=== PATIENT | female | born 1990 | race Caucasian/White ===

== ENCOUNTER 2017-06-28 19:09 | Emergency (ER) | payer MEDICAID, OTHER ==
[~2017-06-28] VITALS: Ht 165.1 cm; Wt 90.7 kg
--- NOTE | 2017-06-28 19:44 | Diagnostic Imaging Report ---
INDICATION: Left-sided chest pain started this morning with nonproductive cough COMPARISON STUDIES: None FINDINGS: Frontal and lateral views of the chest demonstrate the lungs to be clear. The heart, mediastinum, pulmonary vascularity and visualized bony thorax are normal. IMPRESSION: Normal chest. Dictated by: Dictated on workstation # [id number]
--- NOTE | 2017-06-28 19:59 | ED General ---
General Chief Complaint: Chest Wall/Rib Pain Stated Complaint: CHEST/BACK PAIN Nursing Triage Note: left shoulder/chest wall pain worse with cough/deep breathing. no injury Nursing Sepsis Screen: No Definite Risk Source of Information: Patient Exam Limitations: No Limitations History of Present Illness Date Seen by Provider: Jun 28, 2017 Time Seen by Provider: 19:20 Initial Comments Here with report of pain to the area of the left shoulder that radiates around the chest. This way this morning. It is worse with cough and deep breathing. Worse with movement of the left shoulder. Denies specific injury. Timing/Duration: 12 Hours Severity: Moderate Modifying Factors: worse with Movement Associated Systoms: Cough, No Fever/Chills, No Nausea/Vomiting, No Shortness of Air Allergies and Home Medications Allergies Coded Allergies: No Known Drug Allergies (Unverified , 06/28/17) Home Medications No Active Prescriptions or Reported Meds Patient Home Medication List Home Medication List Reviewed: Yes Constitutional: see HPI, No chills, No fever EENTM: no symptoms reported Respiratory: cough, No short of breath Cardiovascular: no symptoms reported Genitourinary: no symptoms reported Musculoskeletal: see HPI, muscle pain, muscle stiffness Skin: no symptoms reported Psychiatric/Neurological: No Symptoms Reported Past Atosctq-Lplzck-Lybvno Hx Patient Social History Alcohol Use: Denies Use Recreational Drug Use: No Smoking Status: Never a Smoker 2nd Hand Smoke Exposure: No Recent Foreign Travel: No Contact w/Someone Who Travel: No Recent Infectious Disease Expo: No Recent Hopitalizations: No Seasonal Allergies Seasonal Allergies: No Surgeries History of Surgeries: Yes Surgeries: Section Respiratory History of Respiratory Disorde: No Cardiovascular History of Cardiac Disorders: No Neurological History of Neurological Disord: No Reproductive System : No Last Menstrual Period: Jun 28, 2017 Genitourinary History of Genitourinary Disor: No Gastrointestinal History of Gastrointestinal Di: No Musculoskeletal History of Musculoskeletal Dis: No Endocrine History of Endocrine Disorders: No HEENT History of HEENT Disorders: No Cancer History of Cancer: No Psychosocial History of Psychiatric Problem: No Integumentary History of Skin or Integumenta: No Blood Transfusions History of Blood Disorders: No Reviewed Nursing Assessment Reviewed/Agree w Nursing PMH: Yes Physical Exam Vital Signs Vital Signs - First Documented 06/28/17 19:15 Temp 98.4 Pulse 82 Resp 16 B/P (MAP) 140/97 (111) Pulse Ox 99 O2 Delivery Room Air Capillary Refill : Less Than 3 Seconds General Appearance: No Apparent Distress, WD/WN HEENT: PERRL/EOMI, Pharynx Normal Neck: Non Tender, Supple Respiratory: Lungs Clear, Normal Breath Sounds Cardiovascular: Regular Rate, Rhythm, No Murmur Gastrointestinal: Non Tender, Soft Extremity: Normal Range of Motion, Other (tender in the area of the rhomboids. Tender with movement.) Neurologic/Psychiatric: Alert, Oriented x3 Skin: Normal Color, Warm/Dry Progress/Results/Core Measures Suspected Sepsis Recent Fever Within 48 Hours: No Infection Criteria Present: None New/Unexplained Altered Menta: No Sepsis Screen: No Definite Risk Sepsis Diagnosis: SIRS Temperature:98.4 Pulse: 82 Respiratory Rate: 16 Blood Pressure 140 /97 Mean: 111 Results/Orders My Orders Orders - BAILEY GARCIA MD Chest Pa/Lat (2 View) (06/28/17 19:27) Vital Signs/I&O Vital Sign - Last 12Hours 06/28/17 19:15 Temp 98.4 Pulse 82 Resp 16 B/P (MAP) 140/97 (111) Pulse Ox 99 O2 Delivery Room Air Capillary Refill : Less Than 3 Seconds Blood Pressure Mean: 111 Progress Note : Progress Note Seen and evaluated. Two-view chest x-ray ordered. No acute findings. Discharged home with return precautions. Patient verbalize understanding instructions and agreement with plan. Diagnostic Imaging Diagonstic Imaging: Xray Plain Films/CT/US/NM/MRI: chest Comments VIA [facility], [facility] [place], [place] NAME: JULIO CNAI [facility] REC#: [id number] PT STATUS: REG ER : 1990 PHYSICIAN: BAILEY GARCIA MD ADMIT DATE: 06/28/17/ER Draft Date of Exam:06/28/17 CHEST PA/LAT (2 VIEW) INDICATION: Left-sided chest pain started this morning with nonproductive cough COMPARISON STUDIES: None FINDINGS: Frontal and lateral views of the chest demonstrate the lungs to be clear. The heart, mediastinum, pulmonary vascularity and visualized bony thorax are normal. IMPRESSION: Normal chest. Dictated on workstation # [id number] Dict: 06/28/171940 Trans: 06/28/171942 [facility] [id number] Interpreted by: CARYN ROY MD Electronically signed by: Departure Impression Impression: Primary Impression: Rhomboid muscle strain Qualified Codes: S29.012A - Strain of muscle and tendon of back wall of thorax , initial encounter Disposition: HOME, SELF-CARE Condition: Improved Departure-Patient Inst. Decision time for Depature: 20:01 Referrals: NO,LOCAL PHYSICIAN (PCP/Family) Primary Care Physician Patient Instructions: Muscle Strain (DC) Add. Discharge Instructions: All discharge instructions reviewed with patient and/or family. Voiced understanding. Take medications as directed. You may take ibuprofen 800 mg every 8 hours as needed for pain. You may take Tylenol 1000 mg every 8 hours as needed for pain. You may use icy hot with lidocaine patch for similar I don't that you may purchase over the counter to the area of concern per package directions. Return for worse pain, fever, vomiting, weakness, breathing problems or other concerns as needed. Scripts Cyclobenzaprine HCl (Cyclobenzaprine HCl) 10 Mg Tablet 10 MG PO Q8H Y for SPASMS, #15 TAB 0 Refills Prov: BAILEY GARCIA MD 06/28/17 BAILEY GARCIA MD Jun 28, 2017 19:59
[2017-06-28] MEDS ORDERED: CYCL10TA9 PO (20:03)
[2017-06-28 20:10] VITALS: BP 140/97
== END 2017-06-28 20:07 | disposition home or self-care (01) ==
LOC: EDUNIT# 19:09 → ER 19:11
DX: S29.012A Strain of muscle and tendon of back wall of thorax, initial encounter (principal); Z87.59 Personal history of other complications of pregnancy, childbirth and the puerperium; X58.XXXA Exposure to other specified factors, initial encounter
CPT/HCPCS: 71046

== ENCOUNTER 2017-09-06 10:30 | Emergency (ER) | payer MEDICAID ==
[~2017-09-06] VITALS: Ht 162.6 cm; Wt 81.6 kg
[~2017-09-06 10:30] MED LIST: CYCL10TA9 PO
[2017-09-06] MEDS ORDERED: KETOROLAC 30 MG/ML VIAL IVP STA (11:52)
[2017-09-06] MEDS ORDERED: NS IV 1000 ML 1,000 ML IV ONE (11:52)
--- NOTE | 2017-09-06 11:52 | ED General ---
General Chief Complaint: Lower Extremity Stated Complaint: LEFT LEG PAIN Nursing Triage Note: pt reports pain to left lower extremity from groin to knee intermittently x 1 month. reports pain has been constant since wednesday. mild swelling to lower extremity noted. pt reports warmth and tenderness ot the touch, but denies redness. pt describes intermittent, pulsating, sharp throbbing that worsens when laying or sitting. denies recent long distant travel, flights, or surgeries. Nursing Sepsis Screen: No Definite Risk Source of Information: Patient Exam Limitations: No Limitations History of Present Illness Date Seen by Provider: September 06, 2017 Time Seen by Provider: 11:30 Initial Comments 27-year-old female patient presents to the emergency Department with reports of left anterior thigh pain radiating to the knee for one month. Also complains of distal anterior left lower extremity pain. Does report warmth and tenderness to the touch including light palpation. Pain is worse with lying or sitting. Patient denies any recent known injury. Denies any recent travel, flanks, or surgeries. No family history for DVT. Patient does report a history of an Escherichia coli infection of the left lower extremity approximately 10 years ago which required surgical debridement. Reports infection began after swimming in [facility]. Denies low back pain, bowel incontinence, or bladder incontinence. Timing/Duration: Intermittent, Other (1 month) Modifying Factors: worse with Movement, worse with Other (worse with palpation , lying and sitting.) Allergies and Home Medications Allergies Coded Allergies: No Known Drug Allergies (Unverified , 06/28/17) Home Medications Diclofenac Sodium 75 Mg Tablet.dr, 75 MG PO BID PRN for pain Prescribed by: AURORA PINZON on 09/06/17 1342 Sulfamethoxazole/Trimethoprim 1 Each Tablet, 1 EACH PO BID Prescribed by: AURORA PINZON on 09/06/17 1342 Patient Home Medication List Home Medication List Reviewed: Yes Review of Systems Constitutional: chills; No diaphoresis, No fever, No malaise Respiratory: no symptoms reported Cardiovascular: no symptoms reported Gastrointestinal: no symptoms reported Genitourinary: no symptoms reported Musculoskeletal: see HPI; No back pain; joint pain, joint swelling (LLE swelling.); No neck pain Skin: see HPI; No change in color, No lesions, No lumps, No rash Psychiatric/Neurological: Denies Numbness, Denies Paresthesia, Denies Tingling , Denies Weakness All Other Systems Reviewed Negative Unless Noted: Yes (Negative excepted noted.) Past Ulypzpp-Iaztgw-Agwyau Hx Patient Social History Alcohol Use: Denies Use Recreational Drug Use: No Smoking Status: Never a Smoker 2nd Hand Smoke Exposure: No Recent Foreign Travel: No Contact w/Someone Who Travel: No Recent Infectious Disease Expo: No Recent Hopitalizations: No Physical Abuse: No Sexual Abuse: No Mistreated: No Fear: No Immunizations Up To Date Tetanus Booster (TDap): Less than 5yrs Seasonal Allergies Seasonal Allergies: No Past Medical History Surgeries: Yes (surgical debridement of the LLE for infection) Section Respiratory: No Cardiac: No Neurological: No : No Genitourinary: No Gastrointestinal: No Musculoskeletal: No Endocrine: No HEENT: No Cancer: No Psychosocial: No Nursing Suicide Risk Score: 1 Integumentary: Yes (E. coli infection of the LLE requiring surgical debridement (approx. 2007 or 2009)) Blood Disorders: No Family Medical History Reviewed and Corrections made No Pertinent Family Hx Physical Exam Vital Signs Vital Signs - First Documented 09/06/17 11:15 Pulse 59 Resp 18 B/P (MAP) 132/93 (106) Pulse Ox 99 O2 Delivery Room Air Capillary Refill : Less Than 3 Seconds General Appearance: No Apparent Distress, WD/WN HEENT: PERRL/EOMI, Pharynx Normal Neck: Normal Inspection, Supple Respiratory: Lungs Clear, Normal Breath Sounds, No Accessory Muscle Use, No Respiratory Distress Cardiovascular: Regular Rate, Rhythm, No Murmur, Normal Peripheral Pulses Gastrointestinal: Normal Bowel Sounds, No Organomegaly, Non Tender, Soft Back: Normal Inspection, No Vertebral Tenderness; No Decreased Range of Motion Extremity: Normal Capillary Refill, Normal Range of Motion, No Calf Tenderness , Swelling (mild LLE), Other (left anterior thigh and lateral thigh TTP without rash, deformity, lesions, erythema, or ecchymosis. mild warmth noted. Left anterior distal leg TTP without rash, deformity, lesions, erythema, or ecchymosis. multiple scars noted on the distal LLE consistent with PSH. ) Neurologic/Psychiatric: Alert, Oriented x3, Normal Mood/Affect Skin: Normal Color, Warm/Dry, Other (left anterior thigh and lateral thigh TTP without rash, deformity, lesions, erythema, or ecchymosis. mild warmth noted. Left anterior distal leg TTP without rash, deformity, lesions, erythema, or ecchymosis. multiple scars noted on the distal LLE consistent with PSH. ) Progress/Results/Core Measures Suspected Sepsis Recent Fever Within 48 Hours: No Infection Criteria Present: None New/Unexplained Altered Menta: No Sepsis Screen: No Definite Risk SIRS Temperature: Pulse: 59 Respiratory Rate: 18 Laboratory Tests 09/06/17 12:20: White Blood Count 6.3 Blood Pressure 132 /93 Mean: 106 Laboratory Tests 09/06/17 12:20: Creatinine 0.72, Platelet Count 227, Total Bilirubin 0.5 Results/Orders Lab Results Laboratory Tests Test 09/06/17 12:20 Range/Units White Blood Count 6.3 4.3-11.0 10^3/uL Red Blood Count 4.49 4.35-5.85 10^6/uL Hemoglobin 11.6 11.5-16.0 G/DL Hematocrit 36 35-52 % Mean Corpuscular Volume 80 80-99 FL Mean Corpuscular Hemoglobin 26 25-34 PG Mean Corpuscular Hemoglobin Concent 32 32-36 G/DL Red Cell Distribution Width 14.8 H 10.0-14.5 % Platelet Count 227 130-400 10^3/uL Mean Platelet Volume 11.0 H 7.4-10.4 FL Neutrophils (%) (Auto) 68 42-75 % Lymphocytes (%) (Auto) 25 12-44 % Monocytes (%) (Auto) 6 0-12 % Eosinophils (%) (Auto) 1 0-10 % Basophils (%) (Auto) 0 0-10 % Neutrophils # (Auto) 4.3 1.8-7.8 X 10^3 Lymphocytes # (Auto) 1.6 1.0-4.0 X 10^3 Monocytes # (Auto) 0.4 0.0-1.0 X 10^3 Eosinophils # (Auto) 0.1 0.0-0.3 10^3/uL Basophils # (Auto) 0.0 0.0-0.1 10^3/uL Sodium Level 137 135-145 MMOL/L Potassium Level 3.9 3.6-5.0 MMOL/L Chloride Level 104 98-107 MMOL/L Carbon Dioxide Level 24 21-32 MMOL/L Anion Gap 9 5-14 MMOL/L Blood Urea Nitrogen 19 H 7-18 MG/DL Creatinine 0.72 0.60-1.30 MG/DL Estimat Glomerular Filtration Rate > 60 BUN/Creatinine Ratio 26 Glucose Level 89 70-105 MG/DL Calcium Level 9.0 8.5-10.1 MG/DL Total Bilirubin 0.5 0.1-1.0 MG/DL Aspartate Amino Transf (AST/SGOT) 15 5-34 U/L Alanine Aminotransferase (ALT/SGPT) 6 0-55 U/L Alkaline Phosphatase 83 40-136 U/L C-Reactive Protein High Sensitivity 1.13 H 0.00-0.50 MG/DL Total Protein 7.3 6.4-8.2 GM/DL Albumin 4.0 3.2-4.5 GM/DL My Orders Orders - AURORA PINZON Cbc With Automated Diff (09/06/17 11:50) Comprehensive Metabolic Panel (09/06/17 11:50) Hs C Reactive Protein (09/06/17 11:50) Saline Lock/Iv-Start (09/06/17 11:50) Us Venous Lower Ext Lt (09/06/17 11:50) Ns Iv 1000 Ml (Sodium Chloride 0.9%) (09/06/17 11:52) Ketorolac Injection (Toradol Injection) (09/06/17 11:52) Medications Given in ED Current Medications Medications Dose Ordered Sig/Claudia Route Start Time Stop Time Status Last Admin Dose Admin Sodium Chloride 1,000 ml @ 0 mls/hr Q0M ONCE IV 09/06/17 11:52 09/06/17 11:53 DC 09/06/17 12:56 0 MLS/HR Vital Signs/I&O 09/06/17 09/06/17 11:15 14:43 Pulse 59 59 Resp 18 18 B/P (MAP) 132/93 (106) 127/77 Pulse Ox 99 99 O2 Delivery Room Air Room Air Capillary Refill : Less Than 3 Seconds Blood Pressure Mean: 106 Diagnostic Imaging Diagonstic Imaging: Ultrasound Plain Films/CT/US/NM/MRI: leg Comments US VENOUS LOWER EXT LT PROCEDURE: US left lower extremity venous. TECHNIQUE: Multiple real-time grayscale images were obtained over the left lower extremity in various projections. Additional duplex Doppler and color Doppler images were also obtained. INDICATION: Left leg pain. There is no evidence of a left lower extremity DVT. Left lower extremity deep venous system shows normal compressibility with normal response to augmentation and Valsalva. No fluid collection or mass is seen. IMPRESSION: No evidence of left lower extremity DVT. Dictated on workstation # [id number] Reviewed: Reviewed by Me (radiology report reviewed by me) Departure Communication (Admissions) Laboratory and diagnostic findings discussed with the patient. Patient reports improvement with Toradol. Patient given a prescription for oral antibiotics for the increased warmth of the left thigh as this may be related to early cellulitis. Plan for discharge to home. Impression Primary Impression: Lower extremity pain, left Disposition: HOME, SELF-CARE Condition: Improved Departure-Patient Inst. Decision time for Depature: 13:39 Referrals: NO,LOCAL PHYSICIAN (PCP/Family) Primary Care Physician Patient Instructions: Acute Pain, Adult (DC), Cellulitis (Skin Infection), Adult (DC) Add. Discharge Instructions: All discharge instructions reviewed with patient and/or family. Voiced understanding. Medications as instructed. Tylenol extra strength over-the- counter as directed for pain. Elevate the left lower Lady on pillows. Follow-up with your primary care provider for recheck as an outpatient this week. Return to the emergency department for worsened pain, redness, fever, open wound, shortness of air, chest pain, discoloration, or any other concerns. Scripts Diclofenac Sodium (Diclofenac Sodium) 75 Mg Tablet. 75 MG PO BID PRN for pain, #14 TAB 0 Refills Prov: AURORA PINZON 09/06/17 Sulfamethoxazole/Trimethoprim (Bactrim Ds Tablet) 1 Each Tablet 1 EACH PO BID, #14 TAB 0 Refills Prov: AURORA PINZON 09/06/17 Work/School Note: Local Medical Staff Listing, Work Release Form Date Seen in the Emergency Department: September 06, 2017 Return to Work: September 08, 2017 AURORA PINZON September 06, 2017 11:52
[2017-09-06 12:31] LABS: BASOPHILS % (AUTO) 0 % (0-10); EOSINOPHILS # (AUTO) 0.1 10^3/uL (0.0-0.3); EOSINOPHILS % (AUTO) 1 % (0-10); HEMATOCRIT 36 % (35-52); HEMOGLOBIN 11.6 G/DL (11.5-16.0); LYMPHOCYTES # (AUTO) 1.6 X 10^3 (1.0-4.0); LYMPHOCYTES % (AUTO) 25 % (12-44); MEAN CORPUSCULAR HEMOGLOBIN 26 PG (25-34); MEAN CORPUSCULAR HGB CONC 32 G/DL (32-36); MEAN CORPUSCULAR VOLUME 80 FL (80-99); MONOCYTES # (AUTO) 0.4 X 10^3 (0.0-1.0); MONOCYTES % (AUTO) 6 % (0-12); NEUTROPHILS # (AUTO) 4.3 X 10^3 (1.8-7.8); NEUTROPHILS % (AUTO) 68 % (42-75); PLATELET COUNT 227 10^3/uL (130-400); RED BLOOD COUNT 4.49 10^6/uL (4.35-5.85); RED CELL DISTRIBUTION WIDTH 14.8 % (10.0-14.5); WHITE BLOOD COUNT 6.3 10^3/uL (4.3-11.0)
[2017-09-06 12:48] LABS: ALANINE AMINOTRANSFERASE 6 U/L (0-55); ALKALINE PHOSPHATASE 83 U/L (40-136); BILIRUBIN,TOTAL 0.5 MG/DL (0.1-1.0); BUN/CREATININE RATIO 26; CARBON DIOXIDE 24 MMOL/L (21-32); CHLORIDE 104 MMOL/L (98-107); CREATININE SERUM 0.72 MG/DL (0.60-1.30); GFR ESTIMATED > 60; GLUCOSE 89 MG/DL (70-105); POTASSIUM 3.9 MMOL/L (3.6-5.0); SODIUM 137 MMOL/L (135-145); TOTAL PROTEIN 7.3 GM/DL (6.4-8.2)
--- NOTE | 2017-09-06 13:32 | Diagnostic Imaging Report ---
PROCEDURE: US left lower extremity venous. TECHNIQUE: Multiple real-time grayscale images were obtained over the left lower extremity in various projections. Additional duplex Doppler and color Doppler images were also obtained. INDICATION: Left leg pain. There is no evidence of a left lower extremity DVT. Left lower extremity deep venous system shows normal compressibility with normal response to augmentation and Valsalva. No fluid collection or mass is seen. IMPRESSION: No evidence of left lower extremity DVT. Dictated by: Dictated on workstation # [id number]
[2017-09-06] MEDS ORDERED: SULF1TAB35 PO (13:42)
[2017-09-06] MEDS ORDERED: DICL75TA2 PO (13:42)
[2017-09-06 14:43] VITALS: BP 127/77
== END 2017-09-06 14:43 | disposition home or self-care (01) ==
LOC: EDUNIT# 10:30 → ER 10:33
DX: M79.652 Pain in left thigh (principal); Z86.19 Personal history of other infectious and parasitic diseases; Z87.59 Personal history of other complications of pregnancy, childbirth and the puerperium
CPT/HCPCS: 36415; 80053; 85025; 86141; 96361; 96374

== ENCOUNTER 2018-11-23 19:06 | Emergency (ER) | payer MEDICAID ==
[~2018-11-23] VITALS: Ht 167.6 cm; Wt 59.0 kg
[~2018-11-23 19:06] MED LIST changes: +DICL75TA2 PO; +SULF1TAB35 PO
[2018-11-23 19:52] LABS: BASOPHILS % (AUTO) 0 % (0-10); EOSINOPHILS % (AUTO) 0 % (0-10); HEMATOCRIT 35 % (35-52); HEMOGLOBIN 11.3 G/DL (11.5-16.0); LYMPHOCYTES # (AUTO) 1.4 X 10^3 (1.0-4.0); LYMPHOCYTES % (AUTO) 11 % (12-44); MEAN CORPUSCULAR HEMOGLOBIN 26 PG (25-34); MEAN CORPUSCULAR HGB CONC 32 G/DL (32-36); MEAN CORPUSCULAR VOLUME 80 FL (80-99); MEAN PLATELET VOLUME 10.2 FL (7.4-10.4); MONOCYTES # (AUTO) 0.8 X 10^3 (0.0-1.0); MONOCYTES % (AUTO) 7 % (0-12); NEUTROPHILS # (AUTO) 10.2 X 10^3 (1.8-7.8); NEUTROPHILS % (AUTO) 82 % (42-75); PLATELET COUNT 270 10^3/uL (130-400); RED CELL DISTRIBUTION WIDTH 13.4 % (10.0-14.5); WHITE BLOOD COUNT 12.5 10^3/uL (4.3-11.0)
[2018-11-23 19:59] LABS: PROTHROMBIN TIME PATIENT 13.1 SEC (12.2-14.7)
[2018-11-23 20:06] LABS: ALBUMIN 4.1 GM/DL (3.2-4.5); BILIRUBIN,TOTAL 0.4 MG/DL (0.1-1.0); CALCIUM 9.7 MG/DL (8.5-10.1); CREATININE SERUM 1.14 MG/DL (0.60-1.30); POTASSIUM 3.6 MMOL/L (3.6-5.0); TOTAL PROTEIN 8.6 GM/DL (6.4-8.2)
[2018-11-23 20:35] LABS: AMPHETAMINE SCREEN, URINE NEGATIVE (NEGATIVE); BARBITURATE SCREEN URINE NEGATIVE (NEGATIVE); BENZODIAZEPINES SCREEN URINE NEGATIVE (NEGATIVE); CANNABINOID SCREEN, URINE NEGATIVE (NEGATIVE); COCAINE SCREEN URINE NEGATIVE (NEGATIVE); METHADONE STAT NEGATIVE (NEGATIVE); METHAMPHETAMINE SCREEN URINE S NEGATIVE (NEGATIVE); OPIATE SCREEN URINE POSITIVE (NEGATIVE); OXYCODONE STAT NEGATIVE (NEGATIVE); PROPOXYPHENE STAT NEGATIVE (NEGATIVE); TRICYCLIC ANTIDEPRESSANTS SCRE NEGATIVE (NEGATIVE)
[2018-11-23] MEDS ORDERED: SULF1TAB35 PO (21:09)
--- NOTE | 2018-11-23 21:10 | ED Integumentary General ---
General Chief Complaint: Skin/Wound Problems Stated Complaint: R ARM SWELLING,FEVER Source: patient Exam Limitations: no limitations History of Present Illness Date Seen by Provider: Nov 23, 2018 Time Seen by Provider: 19:34 Initial Comments 28 year old female who presents to the emergency room with complains of right arm abscess and rash on her back. She reports she has had these for around a week. She reports low grade fevers during this time. Timing/Duration: week Associated Symptoms: fever, rash Allergies and Home Medications Allergies Coded Allergies: No Known Drug Allergies (Unverified , 06/28/17) Home Medications Diclofenac Sodium 75 Mg Tablet.dr, 75 MG PO BID PRN for pain Prescribed by: AURORA PINZON on 09/06/17 1342 Sulfamethoxazole/Trimethoprim 1 Each Tablet, 1 EACH PO BID Prescribed by: AURORA PINZON on 09/06/17 1342 Sulfamethoxazole/Trimethoprim 1 Each Tablet, 1 EACH PO BID Prescribed by: BRYANT HUYNH on 11/23/182108 Patient Home Medication List Home Medication List Reviewed: Yes Review of Systems Review of Systems Constitutional: see HPI, chills, fever Skin: see HPI, other (redness and swelling to left forearm and rash on back. ) Past Lttcwro-Tyibqo-Bflspx Hx Past Med/Social Hx: Reviewed Nursing Past Med/Soc Hx Patient Social History Alcohol Use: Denies Use Recreational Drug Use: Yes Drug of Choice: pain pills, meth hx Smoking Status: Never a Smoker 2nd Hand Smoke Exposure: No Recent Foreign Travel: No Contact w/Someone Who Travel: No Recent Hopitalizations: No Immunizations Up To Date Tetanus Booster (TDap): Unknown PED Vaccines UTD: Yes Seasonal Allergies Seasonal Allergies: No Past Medical History Surgeries: Yes Section Respiratory: No Cardiac: No Neurological: No Genitourinary: No Gastrointestinal: No Musculoskeletal: No Endocrine: No HEENT: No Cancer: No Psychosocial: No Integumentary: No Blood Disorders: No Family Medical History Reviewed Nursing Family Hx No Pertinent Family Hx Physical Exam Vital Signs Vital Signs - First Documented 11/23/18 19:27 Temp 100.4 Pulse 122 Resp 22 B/P (MAP) 166/107 (126) Pulse Ox 97 O2 Delivery Room Air Capillary Refill : General Appearance: WD/WN, no apparent distress Cardiovascular: normal peripheral pulses, regular rate, rhythm, no edema, no gallop, no JVD, no murmur Respiratory: chest non-tender, lungs clear, normal breath sounds, no respiratory distress, no accessory muscle use Extremities: normal capillary refill Neurologic/Psychiatric: alert, normal mood/affect, oriented x 3 Skin: normal color, warm/dry, other (erythema and mild swelling to right forearm. No flucuation noted. Cellulitis to back between shoulder blade. ) Progress/Results/Core Measures Results/Orders Lab Results Laboratory Tests Test 11/23/18 19:39 11/23/18 19:42 Range/Units White Blood Count 12.5 H 4.3-11.0 10^3/uL Red Blood Count 4.36 4.35-5.85 10^6/uL Hemoglobin 11.3 L 11.5-16.0 G/DL Hematocrit 35 35-52 % Mean Corpuscular Volume 80 80-99 FL Mean Corpuscular Hemoglobin 26 25-34 PG Mean Corpuscular Hemoglobin Concent 32 32-36 G/DL Red Cell Distribution Width 13.4 10.0-14.5 % Platelet Count 270 130-400 10^3/uL Mean Platelet Volume 10.2 7.4-10.4 FL Neutrophils (%) (Auto) 82 H 42-75 % Lymphocytes (%) (Auto) 11 L 12-44 % Monocytes (%) (Auto) 7 0-12 % Eosinophils (%) (Auto) 0 0-10 % Basophils (%) (Auto) 0 0-10 % Neutrophils # (Auto) 10.2 H 1.8-7.8 X 10^3 Lymphocytes # (Auto) 1.4 1.0-4.0 X 10^3 Monocytes # (Auto) 0.8 0.0-1.0 X 10^3 Eosinophils # (Auto) 0.0 0.0-0.3 10^3/uL Basophils # (Auto) 0.0 0.0-0.1 10^3/uL Prothrombin Time 13.1 12.2-14.7 SEC INR Comment 1.0 0.8-1.4 Activated Partial Thromboplast Time 36 H 24-35 SEC Sodium Level 135 135-145 MMOL/L Potassium Level 3.6 3.6-5.0 MMOL/L Chloride Level 99 98-107 MMOL/L Carbon Dioxide Level 21 21-32 MMOL/L Anion Gap 15 H 5-14 MMOL/L Blood Urea Nitrogen 17 7-18 MG/DL Creatinine 1.14 0.60-1.30 MG/DL Estimat Glomerular Filtration Rate 56 BUN/Creatinine Ratio 15 Glucose Level 108 H 70-105 MG/DL Lactic Acid Level 1.19 0.50-2.00 MMOL/L Calcium Level 9.7 8.5-10.1 MG/DL Corrected Calcium 9.6 8.5-10.1 MG/DL Total Bilirubin 0.4 0.1-1.0 MG/DL Aspartate Amino Transf (AST/SGOT) 14 5-34 U/L Alanine Aminotransferase (ALT/SGPT) 13 0-55 U/L Alkaline Phosphatase 81 40-136 U/L Total Protein 8.6 H 6.4-8.2 GM/DL Albumin 4.1 3.2-4.5 GM/DL Urine Color YELLOW Urine Clarity CLOUDY H Urine pH 5 5-9 Urine Specific Scheller 1.030 H 1.016-1.022 Urine Protein 2+ H NEGATIVE Urine Glucose (UA) NEGATIVE NEGATIVE Urine Ketones NEGATIVE NEGATIVE Urine Nitrite NEGATIVE NEGATIVE Urine Bilirubin NEGATIVE NEGATIVE Urine Urobilinogen 4 H NORMAL MG/DL Urine Leukocyte Esterase NEGATIVE NEGATIVE Urine RBC (Auto) 1+ H NEGATIVE Urine RBC NONE /HPF Urine WBC 0-2 /HPF Urine Squamous Epithelial Cells 0-2 /HPF Urine Crystals PRESENT H /LPF Urine Amorphous Sediment MOD DARRIAN URATES H /LPF Urine Bacteria LARGE H /HPF Urine Casts PRESENT /LPF Urine Hyaline Casts 0-2 H /LPF Urine Mucus NEGATIVE /LPF Urine Culture Indicated YES Urine Opiates Screen POSITIVE H NEGATIVE Urine Oxycodone Screen NEGATIVE NEGATIVE Urine Methadone Screen NEGATIVE NEGATIVE Urine Propoxyphene Screen NEGATIVE NEGATIVE Urine Barbiturates Screen NEGATIVE NEGATIVE Ur Tricyclic Antidepressants Screen NEGATIVE NEGATIVE Urine Phencyclidine Screen NEGATIVE NEGATIVE Urine Amphetamines Screen NEGATIVE NEGATIVE Urine Methamphetamines Screen NEGATIVE NEGATIVE Urine Benzodiazepines Screen NEGATIVE NEGATIVE Urine Cocaine Screen NEGATIVE NEGATIVE Urine Cannabinoids Screen NEGATIVE NEGATIVE Micro Results Microbiology 11/23/18 Blood Culture - Preliminary, Resulted No growth 11/23/18 Blood Culture - Preliminary, Resulted No growth 11/23/18 Urine Culture - Final, Complete 3 or more isolates My Orders Orders - BRYANT HUYNH Cbc With Automated Diff (11/23/18 19:34) Comprehensive Metabolic Panel (11/23/18 19:34) Blood Culture (11/23/18 19:34) Protime With Inr (11/23/18 19:34) Partial Thromboplastin Time (11/23/18 19:34) Ed Iv/Invasive Line Start (11/23/18 19:34) Lactic Acid Analyzer (11/23/18 19:34) Drug Screen Stat (Urine) (11/23/18 20:20) Sulfamethoxazole/Trimet Ds Tab (Bactrim (11/23/18 21:15) Ua Culture If Indicated (11/23/18 21:06) Urine Culture (11/23/18 19:42) Vital Signs/I&O 11/23/18 11/23/18 11/23/18 19:27 20:00 21:36 Temp 100.4 100.4 100.8 Pulse 122 122 95 Resp 22 22 18 B/P (MAP) 166/107 (126) 166/107 137/90 (106) Pulse Ox 97 97 97 O2 Delivery Room Air Room Air Room Air Departure Impression Primary Impression: Cellulitis Disposition: 01 HOME, SELF-CARE Condition: Stable/Unchanged Departure-Patient Inst. Decision time for Depature: 21:08 Referrals: NO,LOCAL PHYSICIAN (PCP/Family) Primary Care Physician Patient Instructions: Cellulitis (Skin Infection), Adult (DC), LOCAL PHYSICIAN LIST Add. Discharge Instructions: Take medications as directed. Follow-up with a primary care provider within 1 week for recheck. Call tomorrow morning to schedule an appointment time. Return back to the emergency room for worsening symptoms or concerns as needed. All discharge instructions reviewed with patient and/or family. Voiced understanding. Scripts Sulfamethoxazole/Trimethoprim (Bactrim Ds Tablet) 1 Each Tablet 1 EACH PO BID for 10 Days, #20 TAB Prov: BRYANT HUYNH 11/23/18 BRYANT HUYNH Nov 23, 2018 21:09
[2018-11-23] MEDS ORDERED: TRIM/SULFAMETH 160/800 (SEPTRA DS) TAB PO ONE (21:15)
[2018-11-23 21:36] VITALS: BP 137/90
[2018-11-24 03:29] LABS: BILIRUBIN,URINE NEGATIVE (NEGATIVE); CLARITY,URINE CLOUDY; COLOR,URINE YELLOW; GLUCOSE, URINE (UA) NEGATIVE (NEGATIVE); KETONES,URINE NEGATIVE (NEGATIVE); LEUKOCYTE ESTERASE ,URINE NEGATIVE (NEGATIVE); NITRITE,URINE NEGATIVE (NEGATIVE); PH,URINE 5 (5-9); PROTEIN,URINE 2+ (NEGATIVE); UROBILINOGEN,URINE 4 MG/DL (NORMAL)
[2018-11-24 03:33] LABS: AMORPHOUS SEDIMENT,UR MOD AMOR URATES /LPF; BACTERIA,URINE LARGE /HPF; HYALINE CASTS, URINE 0-2 /LPF; SQUAMOUS EPITHELIAL CELL,UR 0-2 /HPF; WBC,URINE 0-2 /HPF
== END 2018-11-23 21:36 | disposition home or self-care (01) ==
LOC: EDUNIT# 19:06 → ER 19:07
DX: L03.113 Cellulitis of right upper limb (principal)
CPT/HCPCS: 36415; 80053; 80306; 81000; 83605; 85025; 85610; 85730; 87040; 87088

== ENCOUNTER 2020-02-25 11:42 | Emergency (ER) | payer MEDICAID, OTHER ==
[~2020-02-25] VITALS: Ht 162 cm; Wt 104.3 kg
[2020-02-25] MEDS ORDERED: NS IV 1000 ML 1,000 ML IV SCH (11:50)
[2020-02-25 12:01] LABS: BASOPHILS % (AUTO) 0 % (0-10); EOSINOPHILS # (AUTO) 0.1 10^3/uL (0.0-0.3); EOSINOPHILS % (AUTO) 1 % (0-10); HEMATOCRIT 36 % (35-52); HEMOGLOBIN 10.9 g/dL (11.5-16.0); LYMPHOCYTES % (AUTO) 21 % (12-44); MEAN CORPUSCULAR HEMOGLOBIN 24 pg (25-34); MEAN CORPUSCULAR HGB CONC 30 g/dL (32-36); MEAN CORPUSCULAR VOLUME 78 fL (80-99); MEAN PLATELET VOLUME 10.9 fL (9.0-12.2); MONOCYTES # (AUTO) 0.7 10^3/uL (0.0-1.0); MONOCYTES % (AUTO) 8 % (0-12); NEUTROPHILS # (AUTO) 6.6 10^3/uL (1.8-7.8); NEUTROPHILS % (AUTO) 70 % (42-75); PLATELET COUNT 280 10^3/uL (130-400); WHITE BLOOD COUNT 9.5 10^3/uL (4.3-11.0)
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
[2020-02-25 12:10] LABS: ALBUMIN 3.9 GM/DL (3.2-4.5); CHLORIDE 104 MMOL/L (98-107); POTASSIUM 3.7 MMOL/L (3.6-5.0); SODIUM 138 MMOL/L (135-145)
[2020-02-25 12:11] LABS: CALCIUM 9.1 MG/DL (8.5-10.1)
[2020-02-25 12:13] LABS: GLUCOSE 210 MG/DL (70-105); TOTAL PROTEIN 8.3 GM/DL (6.4-8.2)
[2020-02-25 12:14] LABS: CARBON DIOXIDE 21 MMOL/L (21-32)
[2020-02-25 12:15] LABS: BILIRUBIN,TOTAL 0.5 MG/DL (0.1-1.0)
[2020-02-25 12:16] LABS: ALKALINE PHOSPHATASE 71 U/L (40-136); CREATININE SERUM 0.98 MG/DL (0.60-1.30); GFR ESTIMATED > 60
[2020-02-25 12:18] LABS: BUN/CREATININE RATIO 15
[2020-02-25 12:19] LABS: SALICYLATE < 5.0 MG/DL (5.0-20.0)
[2020-02-25 12:20] LABS: ACETAMINOPHEN < 10 UG/ML (10-30); ALANINE AMINOTRANSFERASE 9 U/L (0-55)
[2020-02-25] MEDS ORDERED: ONDANSETRON 4 MG/2 ML (SDV) Z0FRAN IVP ONE (12:45)
[2020-02-25 13:05] LABS: BILIRUBIN,URINE NEGATIVE (NEGATIVE); CLARITY,URINE CLEAR; COLOR,URINE YELLOW; GLUCOSE, URINE (UA) NEGATIVE (NEGATIVE); KETONES,URINE NEGATIVE (NEGATIVE); LEUKOCYTE ESTERASE ,URINE NEGATIVE (NEGATIVE); NITRITE,URINE NEGATIVE (NEGATIVE); PROTEIN,URINE 1+ (NEGATIVE)
[2020-02-25 13:12] LABS: BACTERIA,URINE FEW /HPF; WBC,URINE 0-2 /HPF
[2020-02-25 13:13] LABS: SQUAMOUS EPITHELIAL CELL,UR 0-2 /HPF
[2020-02-25 13:19] LABS: AMPHETAMINE SCREEN, URINE NEGATIVE (NEGATIVE); BARBITURATE SCREEN URINE NEGATIVE (NEGATIVE); BENZODIAZEPINES SCREEN URINE NEGATIVE (NEGATIVE); CANNABINOID SCREEN, URINE NEGATIVE (NEGATIVE); COCAINE SCREEN URINE NEGATIVE (NEGATIVE); METHADONE STAT NEGATIVE (NEGATIVE); METHAMPHETAMINE SCREEN URINE S NEGATIVE (NEGATIVE); OPIATE SCREEN URINE NEGATIVE (NEGATIVE); OXYCODONE STAT NEGATIVE (NEGATIVE); PROPOXYPHENE STAT NEGATIVE (NEGATIVE); TRICYCLIC ANTIDEPRESSANTS SCRE NEGATIVE (NEGATIVE)
[2020-02-25 14:33] VITALS: BP 140/30
== END 2020-02-25 14:33 | disposition home or self-care (01) ==
LOC: EDUNIT# 11:42 → ER 11:43
DX: T40.2X1A Poisoning by other opioids, accidental (unintentional), initial encounter (principal); F19.20 Other psychoactive substance dependence, uncomplicated; Z86.14 Personal history of Methicillin resistant Staphylococcus aureus infection
CPT/HCPCS: 80053; 80306; 81000; 84443; 84703; 85025; 93005; 93041; 99284; G0480 ×3; 36415; 80320; 80329

== ENCOUNTER 2022-03-09 12:06 | Emergency (ER) | payer MEDICAID ==
[~2022-03-09] VITALS: Ht 165.1 cm; Wt 108.8 kg
[~2022-03-09 12:06] MED LIST changes: +CYCL10TA25 PO; -CYCL10TA9 PO; -SULF1TAB35 PO; +SULF1TAB38 PO
--- NOTE | 2022-03-09 13:19 | ED Lower Extremity ---
General Chief Complaint: Lower Extremity Stated Complaint: LT LEG PAIN Nursing Triage Note: PT TO FT 1 WITH CC OF L LEG PAIN. PT STATES HAS HAD THIS PAIN FOR OVER A YEAR BUT HAS GOTTEN WORSE IN THE LAST 5 DAYS. PT REPORTS PAIN /10. History of Present Illness Date Seen by Provider: Mar 09, 2022 Time Seen by Provider: 13:10 Initial Comments Patient is a 31-year-old female who presents to the emergency department with chronic left leg pain that is acutely worsened over the last 5 days. She states the pain is mostly in her anterior leg and extends from her upper thigh to her foot. She denies any shooting pain. She also denies any numbness or weakness. She does endorse that the areas are mildly tender to palpation but particularly worsened with movement or ambulation. She has had the pain for approximately 1 year. She has not seen any medical providers for the symptoms. She denies any increased swelling or redness in the affected extremity. Denies any history of blood clots. Allergies and Home Medications Allergies Coded Allergies: No Known Drug Allergies (Unverified , 06/28/17) Patient Home Medication List Home Medication List Reviewed: Yes Diclofenac Sodium (Diclofenac Sodium) 75 Mg Tablet.dr, 75 MG PO BID PRN for pain Prescribed by: AURORA PINZON on 09/06/17 1342 Sulfamethoxazole/Trimethoprim (Bactrim Ds Tablet) 1 Each Tablet, 1 EACH PO BID Prescribed by: AURORA PINZON on 09/06/17 1342 Sulfamethoxazole/Trimethoprim (Bactrim Ds Tablet) 1 Each Tablet, 1 EACH PO BID Prescribed by: BRYANT HUYNH on 11/23/18 392 Review of Systems Constitutional: no symptoms reported EENTM: no symptoms reported Respiratory: no symptoms reported Cardiovascular: no symptoms reported Gastrointestinal: no symptoms reported Genitourinary: no symptoms reported Musculoskeletal: see HPI, muscle pain Skin: no symptoms reported Psychiatric/Neurological: No Symptoms Reported Past Dvxjsgg-Cqouud-Yieqqn Hx Patient Social History Tobacco Use?: No Substance use?: No Alcohol Use?: No Pt feels they are or have been: No Immunizations Up To Date Tetanus Booster (TDap): Unknown PED Vaccines UTD: Yes Seasonal Allergies Seasonal Allergies: No Past Medical History Surgery/Hospitalization HX: HX OF PRE-ECLAMPSIA Surgeries: Yes Section Respiratory: No Cardiac: No Neurological: No Genitourinary: No Gastrointestinal: No Musculoskeletal: No Endocrine: No HEENT: No Cancer: No Psychosocial: No Integumentary: No Blood Disorders: No Family Medical History No Pertinent Family Hx Physical Exam Vital Signs Vital Signs - First Documented 03/09/22 12:20 Temp 36.6 Pulse 79 Resp 18 B/P (MAP) 158/111 (127) Pulse Ox 97 O2 Delivery Room Air Capillary Refill : Height, Weight, BMI Height: 5'6.00" Weight: 130lbs. oz. 58.635332kk; 39.00 BMI Method:Stated General Appearance: WD/WN, no apparent distress HEENT: PERRL/EOMI, normal ENT inspection, TMs normal, pharynx normal Neck: non-tender, full range of motion, supple, normal inspection Cardiovascular: regular rate, rhythm Respiratory: chest non-tender, lungs clear, normal breath sounds, no respiratory distress Gastrointestinal: normal bowel sounds, non tender, soft, no organomegaly Legs: left leg soft tissue tenderness Neurologic/Psychiatric: no motor/sensory deficits, alert, normal mood/affect, oriented x 3 Skin: normal color, warm/dry Progress/Results/Core Measures Results/Orders Vital Signs/I&O 03/09/22 12:20 Temp 36.6 Pulse 79 Resp 18 B/P (MAP) 158/111 (127) Pulse Ox 97 O2 Delivery Room Air Blood Pressure Mean: 127 Progress Progress Note : Progress Note Patient is nontoxic and well-hydrated on exam. There is no swelling, redness, calf tenderness, or or pitting edema noted to the left lower extremity when compared to the right lower extremity. Homans' sign is negative. Wells criteria for DVT is 0. With such a low pretest probability ultrasound is not i ndicated at this time. Chronicity of the pain also makes DVT very unlikely. Will give patient an IM dose of ketorolac and discharged home with prescription for the same. Discussed importance of follow-up with PCP/Ortho for further evaluation. Return precautions for urgent symptomology discussed. Patient verbalized understanding. Departure Impression Primary Impression: Left leg pain Disposition: 01 HOME, SELF-CARE Condition: Stable Departure-Patient Inst. Decision time for Depature: 13:15 Referrals: [facility] [place] NO,LOCAL PHYSICIAN (PCP) Primary Care Physician DELFIN VALDES MD Patient Instructions: Acute Pain, Adult (DC) Add. Discharge Instructions: Do not take any additional ibuprofen (Advil/Motrin) or naproxen (Aleve) when taking the medication you have been prescribed. All discharge instructions reviewed with patient and/or family. Voiced understanding. Scripts Ketorolac Tromethamine (Ketorolac Tromethamine) 10 Mg Tablet 10 MG PO Q6H PRN for PAIN-MODERATE (5-7) for 5 Days, #20 TAB 0 Refills Prov: ALIYAH KWONG APRN 03/09/22 ALIYAH KWONG APRN Mar 09, 2022 13:19
[2022-03-09] MEDS ORDERED: KETO10TA PO (13:21)
[2022-03-09] MEDS ORDERED: KETOROLAC 30 MG/ML VIAL IM ONE (13:30)
[2022-03-09 13:33] VITALS: BP 158/111
== END 2022-03-09 13:33 | disposition home or self-care (01) ==
LOC: EDUNIT# 12:06 → ER 12:08
DX: M79.605 Pain in left leg (principal)
CPT/HCPCS: 99284

== ENCOUNTER 2022-04-22 17:19 | Emergency (ER) | payer MEDICAID ==
[~2022-04-22] VITALS: Ht 165.1 cm; Wt 113.3 kg
[~2022-04-22 17:19] MED LIST changes: +KETO10TA PO
[2022-04-22] MEDS ORDERED: ORPHENADRINE 60 MG/2 ML (NORFLEX) AMP (ED ONLY) IM ONE (18:30)
[2022-04-22] MEDS ORDERED: fentaNYL INJ 100 MCG/2 ML AMP IM ONE (18:30)
--- NOTE | 2022-04-22 18:30 | ED Lower Extremity ---
General Chief Complaint: Lower Extremity Stated Complaint: LT LEG PAIN Nursing Triage Note: PT AMB TO FT1 WITH CC OF L LEG PAIN THAT BEGAN ABOUT A MONTH AGO. PT STATES HAS GOTTEN WORSE NOT ALLOWING HER TO SLEEP. PT REPORTS TOOK IBUPROFEN 2 HOURS PRIOR TO ARRIVAL. STATES IS THE ONLY THING THAT HELPS IT. DENIES INJURY Source: patient Exam Limitations: no limitations History of Present Illness Date Seen by Provider: Apr 22, 2022 Time Seen by Provider: 18:12 Allergies and Home Medications Allergies Coded Allergies: No Known Drug Allergies (Unverified , 06/28/17) Patient Home Medication List Diclofenac Sodium (Diclofenac Sodium) 75 Mg Tablet.dr, 75 MG PO BID PRN for pain Prescribed by: AURORA PINZON on 09/06/17 1342 Ketorolac Tromethamine (Ketorolac Tromethamine) 10 Mg Tablet, 10 MG PO Q6H PRN for PAIN-MODERATE (5-7) Prescribed by: Isaías Avilez on 03/09/22 1321 Sulfamethoxazole/Trimethoprim (Bactrim Ds Tablet) 1 Each Tablet, 1 EACH PO BID Prescribed by: AURORA PINZON on 09/06/17 1342 Sulfamethoxazole/Trimethoprim (Bactrim Ds Tablet) 1 Each Tablet, 1 EACH PO BID Prescribed by: BRYANT HUYNH on 11/23/18 2109 Past Dgxzwew-Blvcky-Ngeaht Hx Immunizations Up To Date Tetanus Booster (TDap): Unknown PED Vaccines UTD: Yes Seasonal Allergies Seasonal Allergies: No Past Medical History Surgery/Hospitalization HX: HX OF PRE-ECLAMPSIA Surgeries: Yes Section Respiratory: No Cardiac: No Neurological: No Genitourinary: No Gastrointestinal: No Musculoskeletal: No Endocrine: No HEENT: No Cancer: No Psychosocial: No Integumentary: No Blood Disorders: No Family Medical History No Pertinent Family Hx Physical Exam Vital Signs Vital Signs - First Documented 04/22/22 17:32 Temp 36.6 Pulse 94 Resp 18 B/P (MAP) 194/111 (138) Pulse Ox 95 O2 Delivery Room Air Capillary Refill : Less Than 3 Seconds Height, Weight, BMI Height: 5'6.00" Weight: 130lbs. oz. 58.138209ez; 41.00 BMI Method:Stated Progress/Results/Core Measures Results/Orders My Orders Orders - JEFF FIELDS ICE CREAM VAN VENDOR Fentanyl Inj (Sublimaze Injection) (04/22/22 18:30) Orphenadrine Inj (Ed Only) (Norflex Inje (04/22/22 18:30) Ct Lumbar Spine Wo (04/22/22 18:28) Hydrocodone/Apap 5/325 Tablet (Lortab 5 (04/22/22 19:30) Prednisone Tablet (Deltasone Tablet) (04/22/22 19:30) Medications Given in ED Current Medications Medications Dose Ordered Sig/Claudia Route Start Time Stop Time Status Last Admin Dose Admin Acetaminophen/ Hydrocodone Bitart 1 ea ONCE ONCE PO 04/22/22 19:30 04/22/22 19:31 DC 04/22/22 19:32 1 EA Fentanyl Citrate 50 mcg ONCE ONCE IM 04/22/22 18:30 04/22/22 18:31 DC 04/22/22 18:44 50 MCG Orphenadrine Citrate 60 mg ONCE ONCE IM 04/22/22 18:30 04/22/22 18:31 DC 04/22/22 18:44 60 MG Prednisone 40 mg ONCE ONCE PO 04/22/22 19:30 04/22/22 19:31 DC 04/22/22 19:32 40 MG Vital Signs/I&O 04/22/22 17:32 Temp 36.6 Pulse 94 Resp 18 B/P (MAP) 194/111 (138) Pulse Ox 95 O2 Delivery Room Air Blood Pressure Mean: 138 Departure Impression Primary Impression: Radicular syndrome of left leg Disposition: 01 HOME, SELF-CARE Condition: Improved Departure-Patient Inst. Decision time for Depature: 20:05 Referrals: NO,LOCAL PHYSICIAN (PCP/Family) Primary Care Physician Patient Instructions: Radiculopathy Add. Discharge Instructions: Plan: 1. May use ice and heat 20 minutes at a time I would try this on your lower back and left buttock region. 2. Do gentle stretches of her lower back and her left leg. Do these after applying heat for 20 minutes at a time. 3. You can take Tylenol and ibuprofen as directed per package for discomfort. You can take Flexeril 10mg by mouth every 8 hours as needed for pain. DO NOT DRIVE WHILE TAKING. 4. Take hydrocodone for severe breakthrough pain while waiting for prednisone to kick in. 5. Take steroids daily as directed with food we will try to see if this will help with any inflammation and improve symptoms. 6. If you have any increase, worsening, new or concerning symptoms please return to the ER. 7. If you have persistent systems please follow-up with your primary care provider as previously scheduled. All discharge instructions reviewed with patient and/or family. Voiced understanding. Scripts Prednisone (Prednisone) 20 Mg Tab 40 MG PO DAILY for 5 Days, #10 TAB 0 Refills Prov: JEFF FIELDS [employer] VAN VENDOR 04/22/22 Cyclobenzaprine HCl (Cyclobenzaprine HCl) 10 Mg Tablet 10 MG PO Q8H PRN for SPASMS, #15 TAB 0 Refills Prov: JEFF FIELDS [employer]AM VAN VENDOR 04/22/22 JEFF FIELDS ICE CREAM VAN VENDOR Apr 22, 2022 18:30
--- NOTE | 2022-04-22 19:14 | Diagnostic Imaging Report ---
Clinical indication: Patient with left leg pain that began about a month ago. Exam: Axial CT scan of the lumbar spine performed without IV contrast. Sagittal and coronal reformatted images. Auto Exposure Controls were utilized during the CT exam to meet ALARA standards for radiation dose reduction. Comparison: None. Findings: There is no acute lumbar spine fracture or dislocation. There is no significant central canal or neural foramen narrowing. Intervertebral disk heights and vertebral body heights are within normal limits. There is no significant paraspinal soft tissue abnormality. There is significant fatty infiltration of the pancreas noted. Impression: 1: CT of the lumbar spine shows no significant bony abnormality. There is no acute fracture or dislocation. 2: There is significant fatty infiltration of the pancreas noted. Clinical correlation is suggested. Dictated by: Dictated on workstation # [id number]
[2022-04-22] MEDS ORDERED: HYDROcodone/APAP 5 MG/325 MG (LORTAB) TAB PO ONE (19:30)
[2022-04-22] MEDS ORDERED: predniSONE 20 MG TAB PO ONE (19:30)
[2022-04-22] MEDS ORDERED: PRD20T PO (20:07)
[2022-04-22] MEDS ORDERED: CYCL10TA25 PO (20:07)
[2022-04-22 20:18] VITALS: BP 169/103
== END 2022-04-22 20:18 | disposition home or self-care (01) ==
LOC: EDUNIT# 17:19 → ER 17:21
DX: M54.10 Radiculopathy, site unspecified (principal); Z28.311 Partially vaccinated for COVID-19
CPT/HCPCS: 72131

== ENCOUNTER 2022-06-09 07:50 | Emergency (ER) | payer MEDICAID ==
[~2022-06-09] VITALS: Ht 162.5 cm; Wt 117.9 kg
[~2022-06-09 07:50] MED LIST changes: -ACHD5005 PO; -AMIT25TA9 PO
[2022-06-09 08:05] VITALS: BP 187/131
[2022-06-09] MEDS ORDERED: ORPHENADRINE 60 MG/2 ML (NORFLEX) AMP (ED ONLY) IV ONE (08:45)
[2022-06-09] MEDS ORDERED: KETOROLAC 30 MG/ML VIAL IVP ONE (08:45)
[2022-06-09 08:51] LABS: BILIRUBIN,URINE NEGATIVE (NEGATIVE); CLARITY,URINE CLEAR; COLOR,URINE YELLOW; GLUCOSE, URINE (UA) NEGATIVE (NEGATIVE); KETONES,URINE NEGATIVE (NEGATIVE); LEUKOCYTE ESTERASE ,URINE NEGATIVE (NEGATIVE); NITRITE,URINE NEGATIVE (NEGATIVE); PH,URINE 7.5 (5-9); PROTEIN,URINE NEGATIVE (NEGATIVE)
--- NOTE | 2022-06-09 08:57 | ED General ---
General Chief Complaint: Lower Extremity Stated Complaint: LT LEG PAIN | Nursing Triage Note: ARRIVES TO ED WITH C/O LEFT LOWER EXTREMITY AND LEFT BACK/BUTTOCK PAIN. WAS TREATED FOR THIS PAIN 2 WEEKS AGO AND PRESCRIBED PREDNISONE WHICH SHE FINISHED ON WEDNESDAY. SINCE THEN HAVING NOW EXCRUCIATING PAIN WITH ATTEMPTED AMBULATION OR STANDING. "IT EVEN HURTS TO BREATHE" DENIES NUMBNESS OR TINGLING. Source of Information: Patient, Old Records Exam Limitations: No Limitations History of Present Illness Date Seen by Provider: Jun 09, 2022 Time Seen by Provider: 08:14 Initial Comments This 31-year-old woman presents to the emergency room with recurrent and worsening pain in her left lower back radiating down the lateral leg all the way to her ankle presumed to be radicular in nature. She has been seen in this ER twice in the past and in the clinic as well. This is her fourth visit for this problem. She denies any true weakness, saddle paresthesia, or bowel/bladder dysfunction. She describes a sensation of feeling like the left knee is going to give out when she walks. She has trouble bearing weight as this exacerbates the pain. She has noted more frequent urination yesterday. She has been taking ibuprofen and prednisone. She had some initial relief with medications but states medications are now not effective. Baclofen was prescribed with the prednisone on June 02, 7 days ago. She has not used any opioids, gabapentin, or other prescription medications. She describes a remote injury when she was a teenager causing fracture to the lumbar spine. CT imaging of the lumbar spine was performed on a prior ER visit. No significant abnormalities were noted on that scan. She has not had an MRI. Of note, patient does have a history of substance abuse issues. She had a visit to the emergency room here in 2019 documenting an oxycodone overdose. Allergies and Home Medications Allergies Coded Allergies: No Known Drug Allergies (Unverified , 06/09/22) Patient Home Medication List Home Medication List Reviewed: Yes Amitriptyline HCl (Amitriptyline HCl) 25 Mg Tablet, 25 MG PO HS Prescribed by: ROXANN DIAZ on 06/09/22 1232 Cyclobenzaprine HCl (Cyclobenzaprine HCl) 10 Mg Tablet, 10 MG PO Q8H PRN for SPASMS Prescribed by: JEFF FIELDS on 04/22/222006 Cyclobenzaprine HCl (Cyclobenzaprine HCl) 10 Mg Tablet, 10 MG PO Q8H PRN for SPASMS Prescribed by: ROXANN DIAZ on 06/09/22 1232 Diclofenac Sodium (Diclofenac Sodium) 75 Mg Tablet.dr, 75 MG PO BID PRN for pain Prescribed by: AURORA PINZON on 09/06/17 1342 Hydrocodone/Acetaminophen (Hydrocodone-Acetamin 5-325 mg) 5 Mg-325 Mg Tablet, 1- 2 TAB PO Q4H PRN for PAIN BREAKTROUGH Prescribed by: ROXANN DIAZ on 06/09/22 1233 Ketorolac Tromethamine (Ketorolac Tromethamine) 10 Mg Tablet, 10 MG PO Q6H PRN for PAIN-MODERATE (5-7) Prescribed by: Isaías Avilez on 03/09/22 1321 Prednisone (Prednisone) 20 Mg Tab, 40 MG PO DAILY Prescribed by: JEFF FIELDS on 04/22/222006 Sulfamethoxazole/Trimethoprim (Bactrim Ds Tablet) 1 Each Tablet, 1 EACH PO BID Prescribed by: AURORA PINZON on 09/06/17 1342 Sulfamethoxazole/Trimethoprim (Bactrim Ds Tablet) 1 Each Tablet, 1 EACH PO BID Prescribed by: BRYANT HUYNH on 11/23/182108 Review of Systems Review of Systems Constitutional: no symptoms reported EENTM: no symptoms reported Respiratory: no symptoms reported Cardiovascular: no symptoms reported Gastrointestinal: no symptoms reported Genitourinary: no symptoms reported : Yes LMP: May 29, 2022 Musculoskeletal: see HPI Skin: no symptoms reported Psychiatric/Neurological: See HPI Hematologic/Lymphatic: No Symptoms Reported Immunological/Allergic: no symptoms reported Past Tojslxs-Ylfhwd-Abksft Hx Patient Social History Tobacco Use?: No Use of E-Cig and/or Vaping dev: No Substance use?: No Alcohol Use?: No Pt feels they are or have been: No Immunizations Up To Date Tetanus Booster (TDap): Unknown PED Vaccines UTD: Yes Influenza Vaccine Up-to-Date: No; Not Current First/Initial COVID19 Vaccinat: 2021 Seasonal Allergies Seasonal Allergies: No Past Medical History Surgery/Hospitalization HX: HX OF PRE-ECLAMPSIA SX HX: 2 C SECTION AND DNC Surgeries: Yes Section Respiratory: No Cardiac: No Neurological: No : No Last Menstrual Period: May 29, 2022 Genitourinary: No Gastrointestinal: No Musculoskeletal: Yes (History of lumbar spine fractures) Endocrine: No HEENT: No Cancer: No Psychosocial: No Integumentary: No Blood Disorders: No Family Medical History No Pertinent Family Hx Physical Exam Vital Signs Vital Signs - First Documented 06/09/22 08:05 Temp 36.8 Pulse 102 Resp 18 B/P (MAP) 187/131 (149) Pulse Ox 97 O2 Delivery Room Air Capillary Refill : Less Than 3 Seconds Height, Weight, BMI Height: 5'6.00" Weight: 130lbs. oz. 58.637179mn; 44.00 BMI Method:Stated General Appearance: WD/WN, Moderate Distress, Obese HEENT: PERRL/EOMI, Normal ENT Inspection Neck: Normal Inspection Respiratory: Lungs Clear, Normal Breath Sounds, No Accessory Muscle Use Cardiovascular: Regular Rate, Rhythm, No Edema, No Murmur Gastrointestinal: Non Tender, Soft; No Distended Extremity: Normal Inspection, No Pedal Edema, Other (Tenderness throughout the left buttock region and extending down the lateral leg all the way to the ankle. There is significant tenderness even to light touch. There is no visible abno rmality to visual inspection. There is minor tenderness in the right lower back superior to the SI joint) Neurologic/Psychiatric: Alert, Oriented x3, No Motor/Sensory Deficits, Normal Mood/Affect, Other (Hypersensitivity to touch of the left lateral buttock and leg down to the ankle) Skin: Normal Color, Warm/Dry; No Rash Progress/Results/Core Measures Suspected Sepsis SIRS Temperature: Pulse: 102 Respiratory Rate: 18 Blood Pressure 187 /131 Mean: 149 Laboratory Tests 06/09/22 09:20: Creatinine 0.65 Results/Orders Lab Results Laboratory Tests Test 06/09/22 08:42 06/09/22 09:20 Range/Units Urine Color YELLOW Urine Clarity CLEAR Urine pH 7.5 5-9 Urine Specific [place] 1.020 1.016-1.022 Urine Protein NEGATIVE NEGATIVE Urine Glucose (UA) NEGATIVE NEGATIVE Urine Ketones NEGATIVE NEGATIVE Urine Nitrite NEGATIVE NEGATIVE Urine Bilirubin NEGATIVE NEGATIVE Urine Urobilinogen 0.2 < = 1.0 MG/DL Urine Leukocyte Esterase NEGATIVE NEGATIVE Urine RBC (Auto) NEGATIVE NEGATIVE Urine RBC NONE /HPF Urine WBC NONE /HPF Urine Squamous Epithelial Cells RARE /HPF Urine Crystals NONE /LPF Urine Bacteria NEGATIVE /HPF Urine Casts NONE /LPF Urine Mucus NEGATIVE /LPF Urine Culture Indicated NO Urine Test NEGATIVE NEGATIVE Sodium Level 135 135-145 MMOL/L Potassium Level 4.0 3.6-5.0 MMOL/L Chloride Level 95 L 98-107 MMOL/L Carbon Dioxide Level 27 21-32 MMOL/L Anion Gap 13 5-14 MMOL/L Blood Urea Nitrogen 14 7-18 MG/DL Creatinine 0.65 0.60-1.30 MG/DL Estimat Glomerular Filtration Rate 120 BUN/Creatinine Ratio 22 Glucose Level 99 70-105 MG/DL Calcium Level 8.5 8.5-10.1 MG/DL Magnesium Level 1.9 1.6-2.4 MG/DL My Orders Orders - ROXANN MCADAMS MD Basic Metabolic Panel (06/09/22 08:33) Magnesium (06/09/22 08:33) Ua Culture If Indicated (06/09/22 08:33) Ed Iv/Invasive Line Start (06/09/22 08:33) Orphenadrine Inj (Ed Only) (Norflex Inje (06/09/22 08:45) Ketorolac Injection (Toradol Injection) (06/09/22 08:45) Hcg,Qualitative Urine (06/09/22 09:46) Morphine Injection (Morphine Injection (06/09/22 10:19) Mri Lumbar Spine W/O Contrast (06/09/22 10:19) Morphine Injection (Morphine Injection (06/09/22 12:20) Medications Given in ED Vital Signs/I&O 06/09/22 08:05 Temp 36.8 Pulse 102 Resp 18 B/P (MAP) 187/131 (149) Pulse Ox 97 O2 Delivery Room Air Capillary Refill : Less Than 3 Seconds Blood Pressure Mean: 149 Progress Note #1: Time: 08:59 Progress Note Patient was interviewed and examined. We are checking basic labs to rule out any electrolyte abnormality or anemia as a contributing factor for her pain as these issues may cause spasms. I offered gabapentin which she declined stating it "makes me sick." I will try to avoid opioids as much as possible due to patient's prior problems with opioid medications. At this time we are giving Norflex and Toradol. Progress Note #2: Progress Note Toradol and Norflex did not provide satisfactory pain relief. Morphine was added and 5 mg doses x2. Hypertension was noted and seemed secondary to pain as it was responsive to morphine doses. MRI was obtained demonstrating some mild disc bulging and stenosis. Results were reviewed with patient. Prescriptions were provided. We reviewed discharge instructions. See discharge instructions for further discussion. Diagnostic Imaging Diagonstic Imaging: MRI Plain Films/CT/US/NM/MRI: other (lumbar spine) Comments NAME: NAI BUNCH [facility] REC#: [id number] PT STATUS: REG ER : 1990 PHYSICIAN: ROXANN MCADAMS MD ADMIT DATE: 06/09/22/ER Signed Date of Exam:06/09/22 MRI LUMBAR SPINE W/O CONTRAST MRI LUMBAR SPINE W/O CONTRAST Date: 06/09/2022 11:38 AM Indication: Severe lumbar radiculopathy Comparison: None. Technique: Multi-planar multi-weighted magnetic resonance imaging of the lumbar spine was performed without intravenous contrast using the standard lumbar spine protocol. FINDINGS: The lumbar spine is normally aligned. No acute fracture. Mild multilevel degenerative disc desiccation and disc height loss. Bone marrow signal intensity is normal. Mild heterogeneously T1 hypointense marrow signal which can be seen with smoking, anemia, or obesity The conus terminates at a normal level. No abnormal signal is seen within the visualized distal spinal cord. No clumping of intrathecal nerve roots. No soft tissue abnormality in the visualized abdomen or pelvis. T12-L1: No disc bulge. No facet arthropathy. No significant spinal stenosis or neural foraminal narrowing. L1-L2: No disc bulge. No facet arthropathy. No significant spinal stenosis or neural foraminal narrowing. L2-L3: No disc bulge. No facet arthropathy. No significant spinal stenosis or neural foraminal narrowing. L3-L4: Disc bulge. Mild facet arthropathy. Mild spinal stenosis. Mild bilateral neural foraminal narrowing. L4-L5: Disc bulge. Mild facet arthropathy. Mild spinal stenosis. Mild bilateral neural foraminal narrowing. L5-S1: Disc bulge. Mild facet arthropathy. No significant spinal stenosis or neural foraminal narrowing. IMPRESSION: Mild multilevel degenerative lumbar spondylosis. No high grade spinal canal or neuroforaminal narrowing. Dictated by: Dictated on workstation # [id number] Dict: 06/09/22 1143 Trans: 06/09/22 1149 [facility] [place] [facility] [place] [id number] Interpreted by: EMMA ESPINOZA DO Electronically signed by: EMMA ESPINOZA DO 06/09/22 1149 Departure Impression Primary Impression: Low back pain Qualified Codes: M54.42 - Lumbago with sciatica, left side Additional Impressions: Left lumbar radiculopathy Spinal stenosis of lumbar region Qualified Codes: M48.062 - Spinal stenosis, lumbar region with neurogenic claudication Bulging lumbar disc Hypertension Qualified Codes: I10 - Essential (primary) hypertension Disposition: HOME, SELF-CARE Condition: Improved Departure-Patient Inst. Decision time for Depature: 12:24 Referrals: NO,LOCAL PHYSICIAN (PCP/Family) Primary Care Physician Patient Instructions: Low Back Pain in Adults, Radiculopathy, Spinal Stenosis, Spinal Stenosis Strengthening Exercises, Spinal Stenosis Stretching Exercises Add. Discharge Instructions: Your MRI demonstrated some mild disc bulging and narrowing of the spinal column at the last 3 levels of your lumbar spine. These findings may be related to y our pain. Use ibuprofen up to 600 mg every 6 hours as needed for your primary pain management. Take with food or milk to avoid stomach upset. For pain not controlled by ibuprofen and hydrocodone as prescribed. Follow-up with your primary care provider at [facility] as soon as possible to discuss further pain management. Please call today for an appointment. Review MRI results at the appointment. Referral to a supervisor paint and/or a offender job retention specialist may be appropriate. This can be guided by your primary care office. Nonmedicinal treatment such as physical therapy might also be recommended. Start amitriptyline to help with nerve pain. Start with 25 mg at bedtime. You may increase by intervals of 25 mg every 3 to 4 days if lower doses are not suff icient. Do not exceed 100 mg without discussing with your doctor first. You may use cyclobenzaprine (Flexeril) as prescribed for muscle tension or spasms. Drink plenty of clear liquids to stay well-hydrated. Hydrocodone may cause drowsiness so use with caution. Do not drive or operate machinery while on hydrocodone. Hydrocodone may also cause constipation, so you may wish to use a stool softener such as Colace while on hydrocodone. For long-term improvement of back pain and radiculopathy, work toward weight loss to reduce strain on your back. Your blood pressure was high in the emergency room. This is likely related to pain response, but your blood pressure should be closely monitored by your primary care provider. Prednisone use may have also increased your blood pressure. Return to the emergency room if you have worsening symptoms despite following these instructions. Return immediately if you develop paralysis of your legs, numbness in your groin, difficulty controlling bowels or bladder, or escalating pain not responsive to medications. All discharge instructions reviewed with patient and/or family. Voiced understanding. Scripts Hydrocodone/Acetaminophen (Hydrocodone-Acetamin 5-325 mg) 5 Mg-325 Mg Tablet 1-2 TAB PO Q4H PRN for PAIN BREAKTROUGH, #20 TAB Prov: ROXANN MCADAMS MD 06/09/22 Amitriptyline HCl (Amitriptyline HCl) 25 Mg Tablet 25 MG PO HS, #30 TAB May titrate up by 1 tablet every 3 to 4 days if needed. Do not exceed 100 mg without consulting your doctor. Prov: ROXANN MCADAMS MD 06/09/22 Cyclobenzaprine HCl (Cyclobenzaprine HCl) 10 Mg Tablet 10 MG PO Q8H PRN for SPASMS, #15 TAB 0 Refills Prov: ROXANN MCADAMS MD 06/09/22 Work/School Note: Work Release Form Date Seen in the Emergency Department: Jun 09, 2022 Return to Work: Jun 12, 2022 Other Restrictions Listed Below: No lifting over 10 lbs until released. Restrictions: Avoid strenuous activity, bending, or excessive walking or standing. Copy Copies To 1: [facility]/ROXANN FOLEY MD Jun 09, 2022 08:57
[2022-06-09 08:59] LABS: BACTERIA,URINE NEGATIVE /HPF; SQUAMOUS EPITHELIAL CELL,UR RARE /HPF
[2022-06-09 09:40] LABS: CALCIUM 8.5 MG/DL (8.5-10.1)
[2022-06-09 09:45] LABS: CREATININE SERUM 0.65 MG/DL (0.60-1.30)
[2022-06-09 09:47] LABS: MAGNESIUM 1.9 MG/DL (1.6-2.4)
[2022-06-09] MEDS ORDERED: morphine INJ 10 MG/ML 1ML (SYR OR VIAL) IVP STA ×2 (10:19→12:20)
--- NOTE | 2022-06-09 11:51 | Diagnostic Imaging Report ---
MRI LUMBAR SPINE W/O CONTRAST Date: 06/09/2022 11:38 AM Indication: Severe lumbar radiculopathy Comparison: None. Technique: Multi-planar multi-weighted magnetic resonance imaging of the lumbar spine was performed without intravenous contrast using the standard lumbar spine protocol. FINDINGS: The lumbar spine is normally aligned. No acute fracture. Mild multilevel degenerative disc desiccation and disc height loss. Bone marrow signal intensity is normal. Mild heterogeneously T1 hypointense marrow signal which can be seen with smoking, anemia, or obesity The conus terminates at a normal level. No abnormal signal is seen within the visualized distal spinal cord. No clumping of intrathecal nerve roots. No soft tissue abnormality in the visualized abdomen or pelvis. T12-L1: No disc bulge. No facet arthropathy. No significant spinal stenosis or neural foraminal narrowing. L1-L2: No disc bulge. No facet arthropathy. No significant spinal stenosis or neural foraminal narrowing. L2-L3: No disc bulge. No facet arthropathy. No significant spinal stenosis or neural foraminal narrowing. L3-L4: Disc bulge. Mild facet arthropathy. Mild spinal stenosis. Mild bilateral neural foraminal narrowing. L4-L5: Disc bulge. Mild facet arthropathy. Mild spinal stenosis. Mild bilateral neural foraminal narrowing. L5-S1: Disc bulge. Mild facet arthropathy. No significant spinal stenosis or neural foraminal narrowing. IMPRESSION: Mild multilevel degenerative lumbar spondylosis. No high grade spinal canal or neuroforaminal narrowing. Dictated by: Dictated on workstation # [id number]
[2022-06-09] MEDS ORDERED: AMIT25TA9 PO (12:32)
[2022-06-09] MEDS ORDERED: ACHD5005 PO (12:32)
[2022-06-09] MEDS ORDERED: CYCL10TA25 PO (12:32)
== END 2022-06-09 12:58 | disposition home or self-care (01) ==
LOC: EDUNIT# 07:50 → ER 07:52
DX: M51.16 Intervertebral disc disorders with radiculopathy, lumbar region (principal); M48.061 Spinal stenosis, lumbar region without neurogenic claudication; I10 Essential (primary) hypertension; E66.9 Obesity, unspecified; Z68.41 Body mass index [BMI] 40.0-44.9, adult; Z28.311 Partially vaccinated for COVID-19
CPT/HCPCS: 36415; 72148; 80048; 81000; 83735; 84703; 99282

== ENCOUNTER → 2022-06-09 | Outpatient (CLI) | payer SELFPAY ==
[~2022-06-09] MED LIST changes: +ACHD5005 PO; +AMIT25TA9 PO; +PRD20T PO
== END ==
LOC: FNS 07:42
PROVIDERS: ATTEND Emergency Medicine
DX: Z02.89 Encounter for other administrative examinations (principal)

== ENCOUNTER 2022-07-07 16:21 | Emergency (ER) | payer MEDICAID ==
[~2022-07-07] VITALS: Ht 163 cm; Wt 113.0 kg
[~2022-07-07 16:21] MED LIST changes: +ACHD5005 PO; +AMIT25TA9 PO
--- NOTE | 2022-07-07 18:14 | ED General ---
General Chief Complaint: General Problems/Pain Stated Complaint: LEFT LEG PAIN/SWELLING Nursing Triage Note: Patient to ER w c/o left leg swelling and pain. SOB Patient states this has been going on for 5 months. This past month it has got so bad she can't walk on it and she is now getting fevers off and on. Source of Information: Patient Exam Limitations: No Limitations History of Present Illness Date Seen by Provider: Jul 07, 2022 Time Seen by Provider: 18:12 Initial Comments Patient is a 31-year-old female who presents to the ED with left leg pain and swelling. She states she has been having leg pain for near 5 months. She has been seen here in the ER 2 or 3 visits for similar pain. She had an MRI performed earlier this month that was positive for degenerative disc disease without evidence of spinal stenosis, cauda equina syndrome. She did follow-up with orthopedic who recommended PT. She states over the past 2 to 3 weeks she has not been able to stand, walk or move her leg with significant swelling. She reports intermittent temperature as high as 101. Has been taking anti- inflammatories. She denies of any specific back pain, abdominal pain, vomiting, diarrhea. Some intermittent shortness of breath with ambulation. Allergies and Home Medications Allergies Coded Allergies: gabapentin (Verified Allergy, Unknown, Nausea, 07/08/22) DIZZY AND "WEIRD FEELING" Patient Home Medication List Home Medication List Reviewed: Yes Amitriptyline HCl (Amitriptyline HCl) 25 Mg Tablet, 25 MG PO HS Prescribed by: ROXANN DIAZ on 06/09/22 1232 Cyclobenzaprine HCl (Cyclobenzaprine HCl) 10 Mg Tablet, 10 MG PO Q8H PRN for SPASMS Prescribed by: JEFF FIELDS on 04/22/222006 Cyclobenzaprine HCl (Cyclobenzaprine HCl) 10 Mg Tablet, 10 MG PO Q8H PRN for SPASMS Prescribed by: ROXANN DIAZ on 06/09/22 1232 Diclofenac Sodium (Diclofenac Sodium) 75 Mg Tablet.dr, 75 MG PO BID PRN for pain Prescribed by: AURORA PINZON on 09/06/17 1342 Hydrocodone/Acetaminophen (Hydrocodone-Acetamin 5-325 mg) 5 Mg-325 Mg Tablet, 1- 2 TAB PO Q4H PRN for PAIN BREAKTROUGH Prescribed by: ROXANN DIAZ on 06/09/22 1233 Ketorolac Tromethamine (Ketorolac Tromethamine) 10 Mg Tablet, 10 MG PO Q6H PRN for PAIN-MODERATE (5-7) Prescribed by: Isaías Avilez on 03/09/22 1321 Prednisone (Prednisone) 20 Mg Tab, 40 MG PO DAILY Prescribed by: JEFF FIELDS on 04/22/222006 Sulfamethoxazole/Trimethoprim (Bactrim Ds Tablet) 1 Each Tablet, 1 EACH PO BID Prescribed by: AURORA PINZON on 09/06/17 134 Sulfamethoxazole/Trimethoprim (Bactrim Ds Tablet) 1 Each Tablet, 1 EACH PO BID Prescribed by: BRYANT HUYNH on 11/23/182108 Review of Systems Review of Systems Constitutional: No chills, No diaphoresis; fever, malaise; No weakness Respiratory: No cough; short of breath Cardiovascular: No chest pain Gastrointestinal: No abdominal pain, No diarrhea, No nausea, No vomiting Genitourinary: No decreased output, No discharge Musculoskeletal: No back pain, No joint pain Skin: No change in color, No change in hair/nails All Other Systems Reviewed Negative Unless Noted: Yes Past Bonawtj-Dkqtyg-Mlydve Hx Patient Social History Tobacco Use?: No Substance use?: No Alcohol Use?: No Immunizations Up To Date Tetanus Booster (TDap): Unknown PED Vaccines UTD: Yes First/Initial COVID19 Vaccinat: unknown COVID19 Vaccine [employer]: Moderna Seasonal Allergies Seasonal Allergies: No Past Medical History Surgery/Hospitalization HX: HX OF PRE-ECLAMPSIA SX HX: 2 C SECTION AND DNC Surgeries: Yes Section Respiratory: No Cardiac: No Neurological: No Last Menstrual Period: Jun 09, 2022 Genitourinary: No Gastrointestinal: No Musculoskeletal: Yes (History of lumbar spine fractures) Endocrine: No HEENT: No Cancer: No Psychosocial: No Integumentary: No Blood Disorders: No Family Medical History No Pertinent Family Hx Physical Exam Vital Signs Vital Signs - First Documented 07/07/22 07/08/22 16:36 01:55 Temp 38.2 Pulse 131 Resp 20 B/P (MAP) 150/86 (107) Pulse Ox 93 O2 Delivery Room Air O2 Flow Rate 2.00 Capillary Refill : Less Than 3 Seconds Height, Weight, BMI Height: 5'6.00" Weight: 130lbs. oz. 58.066579hl; 42.00 BMI Method:Stated General Appearance: No Apparent Distress, WD/WN Eyes: Bilateral Eye Normal Inspection, Bilateral Eye PERRL, Bilateral Eye EOMI HEENT: PERRL/EOMI, TMs Normal, Normal ENT Inspection, Pharynx Normal Neck: Full Range of Motion, Normal Inspection, Non Tender, Supple Respiratory: Chest Non Tender, Lungs Clear, Normal Breath Sounds, No Accessory Muscle Use, No Respiratory Distress Cardiovascular: No Edema, No Gallop, No JVD, Tachycardia Gastrointestinal: Normal Bowel Sounds, No Organomegaly, No Pulsatile Mass, Non Tender Back: Normal Inspection, No CVA Tenderness, No Vertebral Tenderness Extremity: Other (Left leg with swelling, tenderness from the left thigh to foot. Does Moncada pedis +2 bilateral. Decreased range of motion left knee and ankle) Neurologic/Psychiatric: Alert, Oriented x3, No Motor/Sensory Deficits, lever operator II- XII Norm as Tested Skin: Other (Swelling of the left leg from the thigh to the feet. +2 dorsalis pedis. Mild erythema posterior leg. Tenderness to palpate) Focused Exam Lactate Level 07/07/22 18:40: Lactic Acid Level 1.58 Lactic Acid Level Laboratory Tests Test 07/07/22 18:40 Lactic Acid Level 1.58 MMOL/L (0.50-2.00) Progress/Results/Core Measures Suspected Sepsis SIRS Temperature: Pulse: 131 Respiratory Rate: 20 Laboratory Tests 07/07/22 18:15: White Blood Count 32.2*H 07/08/22 12:13: White Blood Count 28.0H Blood Pressure 150 /86 Mean: 107 07/07/22 18:40: Lactic Acid Level 1.58 Laboratory Tests 07/07/22 18:15: Creatinine 0.80, INR Comment 1.3, Platelet Count 439H, Total Bilirubin 0.9 07/08/22 12:13: Creatinine 0.69, Platelet Count 339 Results/Orders Lab Results Laboratory Tests Test 07/07/22 18:14 07/07/22 18:15 07/07/22 18:40 07/07/22 20:31 Range/Units B-Type Natriuretic Peptide 116.8 H <100.0 PG/ML White Blood Count 32.2 *H 4.3-11.0 10^3/uL Red Blood Count 3.03 L 3.80-5.11 10^6/uL Hemoglobin 7.6 L 11.5-16.0 g/dL Hematocrit 25 L 35-52 % Mean Corpuscular Volume 81 80-99 fL Mean Corpuscular Hemoglobin 25 25-34 pg Mean Corpuscular Hemoglobin Concent 31 L 32-36 g/dL Red Cell Distribution Width 15.9 H 10.0-14.5 % Platelet Count 439 H 130-400 10^3/uL Mean Platelet Volume 9.1 9.0-12.2 fL Immature Granulocyte % (Auto) 8 % Neutrophils (%) (Auto) 86 H 42-75 % Lymphocytes (%) (Auto) 3 L 12-44 % Monocytes (%) (Auto) 3 0-12 % Eosinophils (%) (Auto) 0 0-10 % Basophils (%) (Auto) 0 0-10 % Neutrophils # (Auto) 27.6 H 1.8-7.8 10^3/uL Lymphocytes # (Auto) 1.0 1.0-4.0 10^3/uL Monocytes # (Auto) 0.9 0.0-1.0 10^3/uL Eosinophils # (Auto) 0.0 0.0-0.3 10^3/uL Basophils # (Auto) 0.1 0.0-0.1 10^3/uL Immature Granulocyte # (Auto) 2.7 H 0.0-0.1 10^3/uL Neutrophils % (Manual) 95 % Lymphocytes % (Manual) 2 % Monocytes % (Manual) 2 % Eosinophils % (Manual) 1 % Band Neutrophils 5 % Nucleated Red Blood Cells 1 Hypochromasia SLIGHT Anisocytosis SLIGHT Prothrombin Time 16.4 H 12.2-14.7 SEC INR Comment 1.3 0.8-1.4 Activated Partial Thromboplast Time 52 H 24-35 SEC D-Dimer 3.89 H 0.00-0.49 UG/ML Sodium Level 133 L 135-145 MMOL/L Potassium Level 2.5 *L 3.6-5.0 MMOL/L Chloride Level 90 L 98-107 MMOL/L Carbon Dioxide Level 29 21-32 MMOL/L Anion Gap 14 5-14 MMOL/L Blood Urea Nitrogen 8 7-18 MG/DL Creatinine 0.80 0.60-1.30 MG/DL Estimat Glomerular Filtration Rate 100 BUN/Creatinine Ratio 10 Glucose Level 137 H 70-105 MG/DL Calcium Level 9.0 8.5-10.1 MG/DL Corrected Calcium 10.1 8.5-10.1 MG/DL Total Bilirubin 0.9 0.1-1.0 MG/DL Aspartate Amino Transf (AST/SGOT) 28 5-34 U/L Alanine Aminotransferase (ALT/SGPT) 16 0-55 U/L Alkaline Phosphatase 169 H 40-136 U/L Total Creatine Kinase 30 29-168 U/L Troponin I < 0.028 <0.028 NG/ML C-Reactive Protein High Sensitivity 32.78 H 0.00-0.50 MG/DL Total Protein 7.4 6.4-8.2 GM/DL Albumin 2.6 L 3.2-4.5 GM/DL Lipase 6 L 8-78 U/L Lactic Acid Level 1.58 0.50-2.00 MMOL/L Urine Color YELLOW Urine Clarity CLEAR Urine pH 6.0 5-9 Urine Specific [place] 1.015 L 1.016-1.022 Urine Protein 1+ H NEGATIVE Urine Glucose (UA) NEGATIVE NEGATIVE Urine Ketones NEGATIVE NEGATIVE Urine Nitrite NEGATIVE NEGATIVE Urine Bilirubin 1+ H NEGATIVE Urine Urobilinogen >=8.0 < = 1.0 MG/DL Urine Leukocyte Esterase NEGATIVE NEGATIVE Urine RBC (Auto) 1+ H NEGATIVE Urine RBC 5-10 H /HPF Urine WBC 5-10 H /HPF Urine Squamous Epithelial Cells 0-2 /HPF Urine Crystals NONE /LPF Urine Bacteria FEW H /HPF Urine Casts PRESENT /LPF Urine Hyaline Casts 0-2 H /LPF Urine Granular Casts 2-5 H /LPF Urine Mucus SMALL H /LPF Urine Culture Indicated YES Urine Opiates Screen NEGATIVE NEGATIVE Urine Oxycodone Screen NEGATIVE NEGATIVE Urine Methadone Screen NEGATIVE NEGATIVE Urine Propoxyphene Screen NEGATIVE NEGATIVE Urine Barbiturates Screen NEGATIVE NEGATIVE Ur Tricyclic Antidepressants Screen NEGATIVE NEGATIVE Urine Phencyclidine Screen NEGATIVE NEGATIVE Urine Amphetamines Screen NEGATIVE NEGATIVE Urine Methamphetamines Screen NEGATIVE NEGATIVE Urine Benzodiazepines Screen NEGATIVE NEGATIVE Urine Cocaine Screen NEGATIVE NEGATIVE Urine Cannabinoids Screen NEGATIVE NEGATIVE Test 07/08/22 12:13 07/09/22 08:46 Range/Units White Blood Count 28.0 H 4.3-11.0 10^3/uL Red Blood Count 2.66 L 3.80-5.11 10^6/uL Hemoglobin 6.8 *L 11.5-16.0 g/dL Hematocrit 22 L 35-52 % Mean Corpuscular Volume 81 80-99 fL Mean Corpuscular Hemoglobin 26 25-34 pg Mean Corpuscular Hemoglobin Concent 32 32-36 g/dL Red Cell Distribution Width 16.3 H 10.0-14.5 % Platelet Count 339 130-400 10^3/uL Mean Platelet Volume 9.8 9.0-12.2 fL Immature Granulocyte % (Auto) 6 % Neutrophils (%) (Auto) 88 H 42-75 % Lymphocytes (%) (Auto) 3 L 12-44 % Monocytes (%) (Auto) 3 0-12 % Eosinophils (%) (Auto) 0 0-10 % Basophils (%) (Auto) 0 0-10 % Neutrophils # (Auto) 24.6 H 1.8-7.8 10^3/uL Lymphocytes # (Auto) 0.9 L 1.0-4.0 10^3/uL Monocytes # (Auto) 0.9 0.0-1.0 10^3/uL Eosinophils # (Auto) 0.0 0.0-0.3 10^3/uL Basophils # (Auto) 0.1 0.0-0.1 10^3/uL Immature Granulocyte # (Auto) 1.6 H 0.0-0.1 10^3/uL Sodium Level 136 135-145 MMOL/L Potassium Level 2.6 L 3.6-5.0 MMOL/L Chloride Level 95 L 98-107 MMOL/L Carbon Dioxide Level 29 21-32 MMOL/L Anion Gap 12 5-14 MMOL/L Blood Urea Nitrogen 7 7-18 MG/DL Creatinine 0.69 0.60-1.30 MG/DL Estimat Glomerular Filtration Rate 118 BUN/Creatinine Ratio 10 Glucose Level 105 70-105 MG/DL Calcium Level 8.2 L 8.5-10.1 MG/DL Lab Scanned Report Transfusion Reaction Form [id number] Micro Results Microbiology 07/07/22 Urine Culture - Final, Complete NO GROWTH 07/07/22 Blood Culture - Preliminary, Resulted No growth 07/07/22 Blood Culture - Preliminary, Resulted No growth My Orders Orders - KADEN MELCHOR Cbc With Automated Diff (07/07/22 18:09) Comprehensive Metabolic Panel (07/07/22 18:09) Hs C Reactive Protein (07/07/22 18:09) Fibrin Degradation Products (07/07/22 18:09) Iv/Invasive Line Insertion .IV INSERT (07/07/22 18:09) Troponin I Mcminn (07/07/22 18:14) Bnp Mcminn (07/07/22 18:14) Ekg Tracing (07/07/22 18:14) Manual Differential (07/07/22 18:15) Blood Culture (07/07/22 18:23) Lactic Acid Analyzer (07/07/22 18:23) Piperacillin Sodium/Tazobactam (Zosyn Vi (07/07/22 18:30) Fentanyl Inj (Sublimaze Injection) (07/07/22 18:23) Ua Culture If Indicated (07/07/22 18:24) Drug Screen Stat (Urine) (07/07/22 18:24) Ns Iv 1000 Ml (Sodium Chloride 0.9%) (07/07/22 18:27) Ns Iv 1000 Ml (Sodium Chloride 0.9%) (07/07/22 19:00) Ct Angio Chest W (R/O Pe) (07/07/22 18:47) Blood Culture (07/07/22 18:26) Iohexol Injection (Omnipaque 350 Mg/Ml 1 (07/07/22 19:00) Received Contrast (Hold Metformin- Contr (07/07/22 19:00) Ns (Ivpb) (Sodium Chloride 0.9% Ivpb Bag (07/07/22 19:00) Potassium Chloride (Tablet) (K Dur Table (07/07/22 19:15) Fentanyl Inj (Sublimaze Injection) (07/07/22 20:00) Ct Abdomen/Pelvis W (07/07/22 20:05) Us Venous Lower Ext Lt (07/07/22 20:21) Catheter(Urinary) Insert & Ass 03,15 (07/07/22 20:35) Iohexol Injection (Omnipaque 350 Mg/Ml 1 (07/07/22 20:45) Received Contrast (Hold Metformin- Contr (07/07/22 20:45) Ns (Ivpb) (Sodium Chloride 0.9% Ivpb Bag (07/07/22 20:45) Urine Culture (07/07/22 20:31) Hydromorphone Injection (Dilaudid Inject (07/07/22 21:30) Lipase (07/07/22 21:51) Potassium Cl 10meq/50ml Ivpb (Kcl 10 Meq (07/07/22 22:45) Ns Iv 1000 Ml (Sodium Chloride 0.9%) (07/07/22 22:38) Partial Thromboplastin Time (07/07/22 22:40) Protime With Inr (07/07/22 22:40) Vancomycin Injection (Vancomycin Injecti (07/07/22 22:45) Creatine Kinase (07/07/22 22:44) Enoxaparin Injection (Lovenox Injection) (07/07/22 22:45) Hydromorphone Injection (Dilaudid Inject (07/08/22 00:23) Cbc With Automated Diff (07/08/22 11:13) Basic Metabolic Panel (07/08/22 11:13) Morphine Injection (Morphine Injection (07/08/22 11:45) Piperacillin Sodium/Tazobactam (Zosyn Vi (07/08/22 12:30) Vancomycin Injection (Vancomycin Injecti (07/08/22 12:30) Type And Screen (07/08/22 12:32) Pantoprazole Injection (Protonix Injecti (07/08/22 12:45) Red Cells Leukocytes Reduced (07/08/22 12:35) Ketorolac Injection (Toradol Injection) (07/08/22 13:00) Ct Extremity Lower Left W (07/08/22 13:09) Iohexol Injection (Omnipaque 350 Mg/Ml 1 (07/08/22 13:15) Received Contrast (Hold Metformin- Contr (07/08/22 13:15) Ns (Ivpb) (Sodium Chloride 0.9% Ivpb Bag (07/08/22 13:15) Lactated Ringers (Lr 1000 Ml Iv Solution (07/08/22 13:15) Potassium Cl 10meq/50ml Ivpb (Kcl 10 Meq (07/08/22 13:30) Potassium Chloride (Tablet) (K Dur Table (07/08/22 14:15) Fentanyl Inj (Sublimaze Injection) (07/08/22 14:11) Ns Iv 500 Ml (Sodium Chloride 0.9%) (07/08/22 14:21) Medications Given in ED Vital Signs/I&O 07/07/22 07/08/22 07/08/22 07/08/22 16:36 01:55 02:21 03:11 Temp 38.2 37.8 37.8 37.4 Pulse 131 106 101 Resp 20 20 20 B/P (MAP) 150/86 (107) 144/74 (97) 125/57 (79) Pulse Ox 93 96 98 O2 Delivery Room Air O2 Flow Rate 2.00 2.00 07/08/22 07/08/22 07/08/22 14:41 14:46 15:00 Temp 38.3 38.3 38.6 Pulse 104 107 103 Resp B/P (MAP) 164/90 179/97 179/97 Pulse Ox 99 97 96 O2 Delivery Nasal Cannula Nasal Cannula Nasal Cannula O2 Flow Rate 2.00 2.00 2.00 Capillary Refill : Less Than 3 Seconds Blood Pressure Mean: 107 ECG Comment Sinus tachycardia, left ventricular hypertrophy, 117 bpm, QRS duration 84 MS, QTc 296 MS Departure Communication (PCP) Reviewed previous ER visits, H&P, lab testing. This is patient's fourth visit for left leg pain since last February. She did have some back pain with the left leg pain. 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 Patient states she has follow-up with orthopedic who recommended PT. She is reporting increased swelling to the left leg. Denies of any specific trauma. On arrival patient was tachycardic low-grade temperature. Concerning for sepsis. Sepsis protocol was initiated with blood cultures and lactic acid. She does report some shortness of breath with using her crutches. Denies of any specific chest pain or abdominal pain. No history of cancer. Patient has not been able to walk over the past 2 weeks secondary to the pain of the left leg. She has no specific lower lumbar midline pain. Denies of any current drug use. History of previous drug use. Patient was accepted at 1615 room 3000 on July 08, 2022 at [facility]. Impression Primary Impression: Cellulitis of left leg Additional Impression: Left leg DVT Disposition: XF SHT-TRM HOSP Condition: Stable Transfer Transfer Reason: Exceeds level of care Time Spoke to Accepting Phy: 22:54 Transfer Progress Notes Accepted by Dr. Mahan [facility] Transfer Time: 22:55 Transfer Facility: [facility] Method of Transfer: Air Departure-Patient Inst. Referrals: [facility] (PCP/Family) Primary Care Physician KADEN MELCHOR Jul 07, 2022 18:14
[2022-07-07 18:21] LABS: BASOPHILS # (AUTO) 0.1 10^3/uL (0.0-0.1); BASOPHILS % (AUTO) 0 % (0-10); EOSINOPHILS % (AUTO) 0 % (0-10); HEMATOCRIT 25 % (35-52); HEMOGLOBIN 7.6 g/dL (11.5-16.0); LYMPHOCYTES % (AUTO) 3 % (12-44); MEAN CORPUSCULAR HEMOGLOBIN 25 pg (25-34); MEAN CORPUSCULAR HGB CONC 31 g/dL (32-36); MEAN CORPUSCULAR VOLUME 81 fL (80-99); MEAN PLATELET VOLUME 9.1 fL (9.0-12.2); MONOCYTES # (AUTO) 0.9 10^3/uL (0.0-1.0); MONOCYTES % (AUTO) 3 % (0-12); NEUTROPHILS # (AUTO) 27.6 10^3/uL (1.8-7.8); NEUTROPHILS % (AUTO) 86 % (42-75); PLATELET COUNT 439 10^3/uL (130-400)
[2022-07-07 18:22] LABS: WHITE BLOOD COUNT 32.2 10^3/uL (4.3-11.0)
[2022-07-07] MEDS ORDERED: fentaNYL INJ 100 MCG/2 ML AMP IVP STA ×2 (18:23→20:00)
[2022-07-07] MEDS ORDERED: NS IV 1000 ML 1,000 ML IV STA ×2 (18:27→22:38)
[2022-07-07] MEDS ORDERED: PIPERACILLIN SODIUM/TAZOBACTAM 4.5 GM in NS (IVPB) 100 ML IV ONE (18:30)
[2022-07-07 18:41] LABS: ALBUMIN 2.6 GM/DL (3.2-4.5); CHLORIDE 90 MMOL/L (98-107); SODIUM 133 MMOL/L (135-145)
[2022-07-07 18:43] LABS: GLUCOSE 137 MG/DL (70-105); TOTAL PROTEIN 7.4 GM/DL (6.4-8.2)
[2022-07-07 18:44] LABS: CARBON DIOXIDE 29 MMOL/L (21-32)
[2022-07-07 18:45] LABS: BILIRUBIN,TOTAL 0.9 MG/DL (0.1-1.0)
[2022-07-07 18:47] LABS: ALKALINE PHOSPHATASE 169 U/L (40-136); GFR ESTIMATED 100
[2022-07-07 18:48] LABS: BUN/CREATININE RATIO 10
[2022-07-07 18:50] LABS: ALANINE AMINOTRANSFERASE 16 U/L (0-55)
[2022-07-07 18:54] LABS: ANISOCYTOSIS SLIGHT; BAND NEUTROPHILS 5 %; EOSINOPHILS % (MANUAL) 1 %; HYPOCHROMASIA SLIGHT; LYMPHOCYTES % (MANUAL) 2 %; MONOCYTES % (MANUAL) 2 %; NEUTROPHILS % (MANUAL) 95 %; NUCLEATED RED BLOOD CELLS 1
[2022-07-07 18:58] LABS: POTASSIUM 2.5 MMOL/L (3.6-5.0)
[2022-07-07] MEDS ORDERED: NS 100 ML (IVPB) BAG IV ONE ×2 (19:00→20:45)
[2022-07-07] MEDS ORDERED: HOLD METFORMIN - RECEIVED CONTRAST 20 ML VIAL IV SCH ×2 (19:00→20:45)
[2022-07-07] MEDS ORDERED: IOHEXOL 350 MG/ML 100 ML (OMNIPAQUE 350) VIAL IV ONE ×2 (19:00→20:45)
[2022-07-07] MEDS ORDERED: NS IV 1000 ML 1,000 ML IV ONE (19:00)
[2022-07-07] MEDS ORDERED: KCL 20 MEQ TAB (K-DUR) PO ONE (19:15)
--- NOTE | 2022-07-07 19:34 | Diagnostic Imaging Report ---
INDICATION: Lower extremity swelling, shortness of breath, now with intermittent fevers. Post IV contrast CT anterior chest utilizing PE protocol with 3-D reconstructions. There is suboptimal arterial opacification in the left and right main pulmonary arteries and the proximal lobar branches are patent. Segmental and subsegmental levels and beyond are poorly opacified and cannot be confidently cleared. No evidence for central PE and there were no secondary findings of pulmonary embolus. No features of right heart strain or elevated right heart pressures and no findings of a lung infarct. No alveolar consolidation or pneumonia. No findings of pulmonary edema. No effusion or pneumothorax. The heart size upper limits. No pericardial collection. The aorta is nonaneurysmal and appeared nonacute. The visible upper abdomen shows mild splenomegaly with no acute appearing abnormality. IMPRESSION: No central or proximal PE. Nonacute aorta. No acute finding in the chest identified. Dictated by: Dictated on workstation # [id number]
[2022-07-07 20:36] LABS: CLARITY,URINE CLEAR; COLOR,URINE YELLOW; GLUCOSE, URINE (UA) NEGATIVE (NEGATIVE); KETONES,URINE NEGATIVE (NEGATIVE); LEUKOCYTE ESTERASE ,URINE NEGATIVE (NEGATIVE); NITRITE,URINE NEGATIVE (NEGATIVE); PROTEIN,URINE 1+ (NEGATIVE)
[2022-07-07 20:52] LABS: AMPHETAMINE SCREEN, URINE NEGATIVE (NEGATIVE); BARBITURATE SCREEN URINE NEGATIVE (NEGATIVE); BENZODIAZEPINES SCREEN URINE NEGATIVE (NEGATIVE); CANNABINOID SCREEN, URINE NEGATIVE (NEGATIVE); COCAINE SCREEN URINE NEGATIVE (NEGATIVE); METHADONE STAT NEGATIVE (NEGATIVE); OPIATE SCREEN URINE NEGATIVE (NEGATIVE); OXYCODONE STAT NEGATIVE (NEGATIVE); PROPOXYPHENE STAT NEGATIVE (NEGATIVE); TRICYCLIC ANTIDEPRESSANTS SCRE NEGATIVE (NEGATIVE)
[2022-07-07 21:08] LABS: BACTERIA,URINE FEW /HPF; BILIRUBIN,URINE 1+ (NEGATIVE); SQUAMOUS EPITHELIAL CELL,UR 0-2 /HPF
[2022-07-07 21:09] LABS: HYALINE CASTS, URINE 0-2 /LPF
[2022-07-07] MEDS ORDERED: HYDROmorphone 2 MG/ML VIAL (DILAUDID) IV ONE (21:30)
--- NOTE | 2022-07-07 21:44 | Diagnostic Imaging Report ---
PROCEDURE: CT abdomen and pelvis with contrast. TECHNIQUE: Multiple contiguous axial images were obtained through the abdomen and pelvis after administration of intravenous contrast. Auto Exposure Controls were utilized during the CT exam to meet ALARA standards for radiation dose reduction. All CT scans use one or more of the following dose optimizing techniques: automated exposure control, MA and/or KvP adjustment based on patient size and exam type or iterative reconstruction. INDICATION: 29-year-old female presents with left leg swelling and pain, shortness of breath and abdominal pain. COMPARISONS: None. FINDINGS: The lung bases show some discoid type atelectatic infiltrates in both lower lobes. There is also some mild central venous congestion. Cardiac contours within normal limits. Liver shows uniform attenuation. Gallbladder is nondistended. Spleen is borderline enlarged. GE junction, stomach and duodenal sweep are normal. There is marked fatty replacement of the pancreas. There is minimal stranding near the pancreatic head. Adrenals are normal. Kidneys appear normal in size, composition and contour with symmetrical perfusion and excretion of contrast. Both ureters are seen through their coarse and appear grossly unremarkable. Bladder is decompressed by a Moreno catheter. The uterus and adnexa are unremarkable. Nonopacified loops of small bowel show a few scattered fluid-filled loops with no significant distention. Large bowel contains fecal material and gas but is mostly decompressed. Several pockets of gas are seen in the transverse colon. The splenic flexure, descending and sigmoid colon are mostly decompressed. There is normal caliber of the aorta, iliac and femoral arteries with normal origin of the visceral arteries. Bone windows show no overall gross abnormalities. IMPRESSION: 1. There is prominent fat pad replacement of the pancreas. The is some stranding in the pancreatic head. An element of pancreatitis is within the differential, correlate clinically with serology. 2. Bibasilar infiltrates, right greater than left. There is some central venous congestion. 3. Splenomegaly. 4. There is no evidence of cholecystitis, appendicitis or obstructive uropathy. 5. Additional nonemergent findings, as described. Dictated by: Dictated on workstation # [id number]
--- NOTE | 2022-07-07 22:05 | Diagnostic Imaging Report ---
PROCEDURE: US left lower extremity venous. TECHNIQUE: Multiple real-time grayscale images were obtained over the left lower extremity in various projections. Additional duplex Doppler and color Doppler images were also obtained. INDICATION: Left leg pain and swelling, assess for deep venous thrombosis. COMPARISONS: None FINDINGS: There is nonocclusive thrombus in the left popliteal vein. The common femoral, superficial femoral, and profunda femoris showed normal compressibility, spontaneity and normal response to augmentation. Similarly, the calf veins show normal compressibility and spontaneity. IMPRESSION: Short segment nonocclusive thrombus seen in the left popliteal vein. Dictated by: Dictated on workstation # [id number]
[2022-07-07] MEDS ORDERED: POTASSIUM CL 10MEQ/50ML IVPB 50 ML IV ONE (22:45)
[2022-07-07] MEDS ORDERED: VANCOMYCIN INJECTION 1,000 MG in NS (IVPB) 250 ML IV ONE (22:45)
[2022-07-07] MEDS ORDERED: ENOXAPARIN 100 MG/1 ML (LOVENOX) SYR ONE (22:45)
[2022-07-07] MEDS ORDERED: ENOXAPARIN 120 MG/0.8 ML (LOVENOX) SQ ONE (22:45)
[2022-07-07 22:53] LABS: INR 1.3 (0.8-1.4); PROTHROMBIN TIME PATIENT 16.4 SEC (12.2-14.7)
[2022-07-08] MEDS ORDERED: HYDROmorphone 2 MG/ML VIAL (DILAUDID) ONE (00:23)
[2022-07-08] MEDS ORDERED: HYDROmorphone 2 MG/ML VIAL (DILAUDID) IV ONE ×3 (02:00→04:45)
[2022-07-08] MEDS ORDERED: ACETAMINOPHEN 500 MG TAB (TYLENOL) PO ONE (02:00)
[2022-07-08] MEDS ORDERED: GABAPENTIN 100 MG (NEURONTIN) CAP PO ONE (04:45)
[2022-07-08] MEDS ORDERED: KETOROLAC 30 MG/ML VIAL IVP ONE ×2 (04:45→13:00)
[2022-07-08] MEDS ORDERED: morphine INJ 4 MG/ML 1 ML (VIAL/SYRINGE) IVP ONE (07:15)
[2022-07-08] MEDS ORDERED: morphine INJ 10 MG/ML 1ML (SYR OR VIAL) IVP STA (08:01)
[2022-07-08] MEDS ORDERED: morphine INJ 10 MG/ML 1ML (SYR OR VIAL) IVP ONE (11:45)
[2022-07-08 12:25] LABS: BASOPHILS # (AUTO) 0.1 10^3/uL (0.0-0.1); BASOPHILS % (AUTO) 0 % (0-10); EOSINOPHILS % (AUTO) 0 % (0-10); HEMATOCRIT 22 % (35-52); LYMPHOCYTES # (AUTO) 0.9 10^3/uL (1.0-4.0); LYMPHOCYTES % (AUTO) 3 % (12-44); MEAN CORPUSCULAR HEMOGLOBIN 26 pg (25-34); MEAN CORPUSCULAR HGB CONC 32 g/dL (32-36); MEAN CORPUSCULAR VOLUME 81 fL (80-99); MEAN PLATELET VOLUME 9.8 fL (9.0-12.2); MONOCYTES # (AUTO) 0.9 10^3/uL (0.0-1.0); MONOCYTES % (AUTO) 3 % (0-12); NEUTROPHILS # (AUTO) 24.6 10^3/uL (1.8-7.8); NEUTROPHILS % (AUTO) 88 % (42-75); PLATELET COUNT 339 10^3/uL (130-400)
[2022-07-08] MEDS ORDERED: VANCOMYCIN INJECTION 0.1 MG in NS (IVPB) 250 ML IV SCH (12:30)
[2022-07-08] MEDS ORDERED: PIPERACILLIN SODIUM/TAZOBACTAM 4.5 GM in NS (IVPB) 100 ML IV SCH (12:30)
[2022-07-08 12:31] LABS: HEMOGLOBIN 6.8 g/dL (11.5-16.0)
[2022-07-08 12:40] LABS: CALCIUM 8.2 MG/DL (8.5-10.1)
[2022-07-08 12:44] LABS: CREATININE SERUM 0.69 MG/DL (0.60-1.30)
[2022-07-08] MEDS ORDERED: PANTOPRAZOLE 40 MG (PROTONIX) VIAL IV ONE (12:45)
[2022-07-08 13:00] LABS: POTASSIUM 2.6 MMOL/L (3.6-5.0)
[2022-07-08] MEDS ORDERED: IOHEXOL 350 MG/ML 100 ML (OMNIPAQUE 350) VIAL IV ONE (13:15)
[2022-07-08] MEDS ORDERED: HOLD METFORMIN - RECEIVED CONTRAST 20 ML VIAL IV SCH (13:15)
[2022-07-08] MEDS ORDERED: NS 100 ML (IVPB) BAG IV ONE (13:15)
[2022-07-08] MEDS ORDERED: LACTATED RINGERS 1,000 ML IV SCH (13:15)
[2022-07-08] MEDS ORDERED: POTASSIUM CL 10MEQ/50ML IVPB 50 ML IV ONE (13:30)
[2022-07-08] MEDS ORDERED: fentaNYL INJ 100 MCG/2 ML AMP IVP STA (14:11)
[2022-07-08] MEDS ORDERED: KCL 20 MEQ TAB (K-DUR) PO ONE (14:15)
[2022-07-08] MEDS ORDERED: NS IV 500 ML 500 ML ONE (14:21)
[2022-07-08 14:41] VITALS: BP 164/90
[2022-07-08 14:46] VITALS: BP 179/97
[2022-07-08 15:00] VITALS: BP 179/97
--- NOTE | 2022-07-08 15:12 | Diagnostic Imaging Report ---
Procedure: CT left lower extremity with contrast. Technique: Multiple axial images of the left lower extremity were obtained after intravenous administration of iodinated contrast. Auto Exposure Controls were utilized during the CT exam to meet ALARA standards for radiation dose reduction. Date: July 08, 2022. Indication: 31-year-old female, left leg swelling at the level of the thigh. Comparison: None. Findings: There is a large predominantly low attenuation mass with internal septations surrounding the left femur with proximal extent at the mid femoral diaphysis and distal extent at the level of the distal femoral metaphysis. There is a craniocaudal extent of approximately 23.4 cm. The mass measures approximately 12.5 x 12.1 cm in axial extent. There is a small focus of fat at the anterior nondependent aspect of the mass on axial image 130. There is periosteal reaction at the site of the soft tissue mass and abnormal sclerosis within the intramedullary cavity centered at the site of the mass on axial image 141. There is also abnormal soft tissue attenuation within the marrow at the site of the bone lesion such as on axial image 120. Proximal to this level, there is abnormal cortical thickening. The mass includes involvement of the anterior compartment and posterior compartment. There is no identified acute fracture. There is no additional identified bone lesion. There is subcutaneous edema along the length of the left femur and tibia and fibula. There is no identified focal fluid collection. There is a left inguinal lymph node measuring 11 mm in short axis on axial image 66. The mass does surround the left superficial femoral vasculature. Impression: 1. Very large soft tissue mass extending from the level of the mid femoral diaphysis to the distal femoral metaphysis which includes bone involvement. This is most suspicious for an aggressive malignancy. A primary malignancy of bone versus primary soft tissue neoplasm are prime differential diagnostic considerations. Orthopedic oncologic consultation and workup for definitive diagnosis is needed. 2. 11 mm in short axis left inguinal lymph node. 3. Nonspecific subcutaneous edema without focal fluid collection. Dictated by: Dictated on workstation # [id number]
== END 2022-07-08 15:00 | disposition short-term general hospital (02) ==
LOC: EDUNIT# 16:21 → ER 16:24
DX: L03.116 Cellulitis of left lower limb (principal); I82.402 Acute embolism and thrombosis of unspecified deep veins of left lower extremity; Z28.311 Partially vaccinated for COVID-19
CPT/HCPCS: 71275; 73701; 74177; 80048; 80053; 80306; 81000; 82550; 83605; 83690; 83880; 84484; 85007; 85025; 85027; 85379; 85610; 85730; 86141; 86850; 86900; 86901; 86920; 87040; 87088; 93005; 93971; 99285; P9016; 36415

== ENCOUNTER → 2022-09-24 | Outpatient (CLI) | payer MEDICAID ==
[2022-09-24 09:33] LABS: BASOPHILS % (AUTO) 0 % (0-10); EOSINOPHILS # (AUTO) 0.1 10^3/uL (0.0-0.3); EOSINOPHILS % (AUTO) 1 % (0-10); HEMATOCRIT 26 % (35-52); HEMOGLOBIN 8.3 g/dL (11.5-16.0); LYMPHOCYTES # (AUTO) 1.1 10^3/uL (1.0-4.0); LYMPHOCYTES % (AUTO) 18 % (12-44); MEAN CORPUSCULAR HEMOGLOBIN 28 pg (25-34); MEAN CORPUSCULAR HGB CONC 32 g/dL (32-36); MEAN CORPUSCULAR VOLUME 89 fL (80-99); MEAN PLATELET VOLUME 11.1 fL (9.0-12.2); MONOCYTES # (AUTO) 0.5 10^3/uL (0.0-1.0); MONOCYTES % (AUTO) 9 % (0-12); NEUTROPHILS # (AUTO) 4.1 10^3/uL (1.8-7.8); NEUTROPHILS % (AUTO) 70 % (42-75); PLATELET COUNT 203 10^3/uL (130-400); WHITE BLOOD COUNT 5.9 10^3/uL (4.3-11.0)
[2022-09-24 09:38] LABS: ALBUMIN 3.8 GM/DL (3.2-4.5); POTASSIUM 4.1 MMOL/L (3.6-5.0)
[2022-09-24 09:40] LABS: CALCIUM 9.3 MG/DL (8.5-10.1)
[2022-09-24 09:43] LABS: BILIRUBIN,TOTAL 0.3 MG/DL (0.1-1.0)
[2022-09-24 09:45] LABS: CREATININE SERUM 0.66 MG/DL (0.60-1.30)
[2022-09-24 09:53] LABS: VANCOMYCIN,TROUGH 9.4 UG/ML (10.0-20.0)
[2022-09-24 09:59] LABS: ANISOCYTOSIS SLIGHT; EOSINOPHILS % (MANUAL) 2 %; HYPOCHROMASIA SLIGHT; LYMPHOCYTES % (MANUAL) 18 %; MONOCYTES % (MANUAL) 4 %; NEUTROPHILS % (MANUAL) 76 %
[2022-09-24 10:00] LABS: ERYTHROCYTE SEDIMENTATION RATE 121 MM/HR (0-20)
== END ==
LOC: LABNPT 09:23
DX: M86.60 Other chronic osteomyelitis, unspecified site (principal); B95.62 Methicillin resistant Staphylococcus aureus infection as the cause of diseases classified elsewhere; L02.419 Cutaneous abscess of limb, unspecified
CPT/HCPCS: 80053; 80202; 85007; 85027; 85652; 86141

== ENCOUNTER → 2022-09-28 | Outpatient (CLI) | payer MEDICAID ==
[2022-09-28 10:02] LABS: BASOPHILS % (AUTO) 0 % (0-10); EOSINOPHILS # (AUTO) 0.1 10^3/uL (0.0-0.3); EOSINOPHILS % (AUTO) 1 % (0-10); HEMATOCRIT 27 % (35-52); HEMOGLOBIN 8.5 g/dL (11.5-16.0); LYMPHOCYTES # (AUTO) 1.3 10^3/uL (1.0-4.0); LYMPHOCYTES % (AUTO) 25 % (12-44); MEAN CORPUSCULAR HEMOGLOBIN 28 pg (25-34); MEAN CORPUSCULAR HGB CONC 32 g/dL (32-36); MEAN CORPUSCULAR VOLUME 87 fL (80-99); MEAN PLATELET VOLUME 10.3 fL (9.0-12.2); MONOCYTES # (AUTO) 0.4 10^3/uL (0.0-1.0); MONOCYTES % (AUTO) 7 % (0-12); NEUTROPHILS # (AUTO) 3.4 10^3/uL (1.8-7.8); NEUTROPHILS % (AUTO) 65 % (42-75); PLATELET COUNT 176 10^3/uL (130-400); WHITE BLOOD COUNT 5.2 10^3/uL (4.3-11.0)
[2022-09-28 10:09] LABS: ALBUMIN 3.7 GM/DL (3.2-4.5); POTASSIUM 3.8 MMOL/L (3.6-5.0)
[2022-09-28 10:10] LABS: CALCIUM 9.7 MG/DL (8.5-10.1)
[2022-09-28 10:11] LABS: TOTAL PROTEIN 7.6 GM/DL (6.4-8.2)
[2022-09-28 10:13] LABS: BILIRUBIN,TOTAL 0.3 MG/DL (0.1-1.0)
[2022-09-28 10:15] LABS: CREATININE SERUM 0.68 MG/DL (0.60-1.30)
[2022-09-28 10:24] LABS: ANISOCYTOSIS SLIGHT; BAND NEUTROPHILS 0 %; BASOPHILS % (MANUAL) 1 %; EOSINOPHILS % (MANUAL) 1 %; LYMPHOCYTES % (MANUAL) 19 %; MONOCYTES % (MANUAL) 7 %; NEUTROPHILS % (MANUAL) 72 %; POLYCHROMASIA SLIGHT; VANCOMYCIN,TROUGH 9.2 UG/ML (10.0-20.0)
[2022-09-28 10:42] LABS: ERYTHROCYTE SEDIMENTATION RATE 100 MM/HR (0-20)
== END ==
LOC: LABNPT 09:50
DX: M86.652 Other chronic osteomyelitis, left thigh (principal); I82.432 Acute embolism and thrombosis of left popliteal vein; D64.9 Anemia, unspecified; L02.416 Cutaneous abscess of left lower limb
CPT/HCPCS: 80053; 80202; 85007; 85027; 85652; 86141

== ENCOUNTER → 2022-09-30 | Outpatient (CLI) | payer MEDICAID | LOC: LABNPT 09:16 | DX: Z45.2 Encounter for adjustment and management of vascular access device (principal); M86.652 Other chronic osteomyelitis, left thigh; L02.416 Cutaneous abscess of left lower limb | CPT/HCPCS: 80202 ==

== ENCOUNTER → 2022-10-02 | Outpatient (CLI) | payer MEDICAID ==
[2022-10-02 13:11] LABS: VANCOMYCIN,TROUGH 9.8 UG/ML (10.0-20.0)
== END ==
LOC: LAB 12:34
DX: M86.652 Other chronic osteomyelitis, left thigh (principal)
CPT/HCPCS: 36415; 80202; 86141

== ENCOUNTER 2022-10-06 13:47 | Outpatient (CLI) | payer MEDICAID ==
[~2022-10-06] VITALS: Ht 162.6 cm; Wt 116.6 kg
[2022-10-06] MEDS ORDERED: NS IV ONE (14:15)
[2022-10-06] MEDS ORDERED: DAPTOMYCIN IV ONE (14:15)
[2022-10-06 14:33] LABS: BASOPHILS % (AUTO) 0 % (0-10); EOSINOPHILS # (AUTO) 0.1 10^3/uL (0.0-0.3); EOSINOPHILS % (AUTO) 1 % (0-10); HEMATOCRIT 27 % (35-52); HEMOGLOBIN 8.3 g/dL (11.5-16.0); LYMPHOCYTES # (AUTO) 0.9 10^3/uL (1.0-4.0); LYMPHOCYTES % (AUTO) 20 % (12-44); MEAN CORPUSCULAR HEMOGLOBIN 27 pg (25-34); MEAN CORPUSCULAR HGB CONC 31 g/dL (32-36); MEAN CORPUSCULAR VOLUME 86 fL (80-99); MEAN PLATELET VOLUME 10.4 fL (9.0-12.2); MONOCYTES # (AUTO) 0.3 10^3/uL (0.0-1.0); MONOCYTES % (AUTO) 7 % (0-12); NEUTROPHILS # (AUTO) 3.4 10^3/uL (1.8-7.8); NEUTROPHILS % (AUTO) 72 % (42-75); PLATELET COUNT 197 10^3/uL (130-400); WHITE BLOOD COUNT 4.7 10^3/uL (4.3-11.0)
[2022-10-06 14:42] LABS: ALBUMIN 3.4 GM/DL (3.2-4.5)
[2022-10-06 14:44] LABS: CALCIUM 9.2 MG/DL (8.5-10.1)
[2022-10-06 14:45] LABS: TOTAL PROTEIN 7.3 GM/DL (6.4-8.2)
[2022-10-06 14:47] LABS: BILIRUBIN,TOTAL 0.2 MG/DL (0.1-1.0)
[2022-10-06 14:49] LABS: CREATININE SERUM 0.72 MG/DL (0.60-1.30)
[2022-10-06 15:15] VITALS: BP 129/78
[2022-10-06 15:21] LABS: ERYTHROCYTE SEDIMENTATION RATE > 140 MM/HR (0-20)
== END 2022-10-06 15:50 | disposition home or self-care (01) ==
LOC: SDC 13:47
PROVIDERS: ATTEND Internal Medicine
DX: M86.60 Other chronic osteomyelitis, unspecified site (principal); M86.10 Other acute osteomyelitis, unspecified site
CPT/HCPCS: 36415; 80053; 82550; 85025; 85652; 86141; 96365

== ENCOUNTER → 2022-10-06 | Outpatient (CLI) | payer MEDICAID ==
--- NOTE | 2022-10-06 17:12 | Diagnostic Imaging Report ---
PROCEDURE: US Venous Lower Ext Ata. TECHNIQUE: Multiple real-time grayscale images were obtained over the lower extremities in various projections, bilaterally. Additional duplex Doppler and color Doppler images were also obtained. INDICATION: Bilateral lower extremity edema. FINDINGS: There is no evidence of right or left lower extremity DVT. Both lower extremity deep venous systems demonstrate normal compressibility with normal response to augmentation and Valsalva. No fluid collection or mass is detected. IMPRESSION: No evidence of right or left lower extremity DVT. Dictated by: Dictated on workstation # [id number]
== END ==
LOC: RAD 16:02
DX: R60.0 Localized edema (principal)
CPT/HCPCS: 93970

== ENCOUNTER → 2022-11-30 | Outpatient (CLI) | payer MEDICAID ==
--- NOTE | 2022-11-30 09:48 | Diagnostic Imaging Report ---
PROCEDURE: US left lower extremity venous. TECHNIQUE: Multiple real-time grayscale images were obtained over the left lower extremity in various projections. Additional duplex Doppler and color Doppler images were also obtained. INDICATION: Pain and swelling. FINDINGS: Examination is technically limited due to body habitus and swelling. However, the left common femoral, femoral popliteal and tibial veins appear to demonstrate normal response to compression, augmentation, and Valsalva. There are no abnormal fluid collections or masses. IMPRESSION: No evidence of deep venous thrombosis in the left lower extremity although the examination is limited due to body habitus and swelling. Dictated by: Dictated on workstation # [id number]
== END ==
LOC: RAD 08:58
PROVIDERS: ATTEND Orthopaedic Surgery
DX: R60.0 Localized edema (principal)

== ENCOUNTER → 2022-12-02 | Outpatient (CLI) | payer MEDICAID ==
[~2022-12-02] MED LIST changes: +GADOTERATE 0.5 MMOL/ML (CLARISCAN) 20 ML VIAL IV ONE; +GADOTERATE 0.5 MMOL/ML (CLARISCAN) 5 ML VIAL IV ONE
--- NOTE | 2022-12-02 11:22 | Diagnostic Imaging Report ---
Exam: MRI left femur without and with intravenous contrast. Date: December 02, 2022. Indication: 32-year-old female with history of osteomyelitis of the left femur with left lower extremity swelling at the level of the femur. Comparison: CT left lower extremity July 08, 2022. Technique: Multiple pre and postcontrast MR sequences at the level of the left femur were obtained. Findings: There is a defect in the lateral cortex at the level of the left distal femoral diaphysis well demonstrated on axial T1 sequence image 20. There is a fluid-filled tract which includes involvement of the vastus intermedialis muscle extending within the bone best demonstrated on axial T2 fat saturation sequence image 34 and adjacent sequential images. Including intraosseous and intramuscular components, this measures 5.7 x 2.1 cm in axial extent and has a craniocaudal extent of approximately 3.3 cm. There is edema present within the vastus intermedialis muscle. There is also low-level edema in the vastus medialis and vastus lateralis muscles with more proximal and distal to this location. There is also edema-like signal in the biceps femoris muscle. There is a linear tract of signal extending to the lateral skin surface near the level of the intraosseous defect. No additional separate fluid collection is identified. There is loss of normal T1 marrow signal with the proximal extent to the level of the intertrochanteric femur and a distal extent to the distal margin of the included [id number] at least to the level of the distal femoral metaphysis. There are abnormally enlarged left inguinal lymph nodes which may be reactive. There are areas of nonspecific subcutaneous edema. Impression: 1. Fluid collection within the vastus intermedialis muscle extending within the intramedullary cavity of the distal femoral diaphysis most consistent with intramuscular and intraosseous abscess. There is a cortical defect of the lateral cortex of the distal femoral diaphysis at this level. There previously was a much larger fluid collection near this site on the prior CT; however, the lateral cortical defect of the bone is an interval change. 2. Findings most consistent with osteomyelitis of the left femur with proximal extent near the level of the left intertrochanteric femur extending to the distal margin of the included [id number] which is at least to the level of the distal femoral metaphysis. 3. Edema in the quadriceps musculature which may reflect myositis. Additional nonspecific edema in the biceps femoris muscle. 4. Additional areas of nonspecific subcutaneous edema without an additional focal fluid collection identified. Dictated by: Dictated on workstation # [id number]
== END ==
LOC: RAD 09:19
PROVIDERS: ATTEND Orthopaedic Surgery
DX: M79.605 Pain in left leg (principal); R60.0 Localized edema
CPT/HCPCS: 73720

== ENCOUNTER → 2023-03-01 | Outpatient (CLI) | payer MEDICAID ==
[~2023-03-01] MED LIST changes: -GADOTERATE 0.5 MMOL/ML (CLARISCAN) 20 ML VIAL IV ONE; -GADOTERATE 0.5 MMOL/ML (CLARISCAN) 5 ML VIAL IV ONE
[2023-03-01] MEDS: GADOTERATE 0.5 MMOL/ML (CLARISCAN) 5 ML VIAL IV ONE (13:09)
[2023-03-01] MEDS: GADOTERATE 0.5 MMOL/ML (CLARISCAN) 20 ML VIAL IV ONE (13:09)
--- NOTE | 2023-03-01 13:58 | Diagnostic Imaging Report ---
EXAM: MRI left femur without and with intravenous contrast. DATE: March 01, 2023. INDICATION: 32-year-old female, left femur pain. COMPARISON: MRI December 02, 2022. CT July 08, 2022. TECHNIQUE: Multiple pre and post contrast MRI sequences of the left femur were obtained. FINDINGS: There are motion limitations of the exam and limitations of the exam relating to low [id number] ratio. There is a cortical defect of the lateral aspect of the femoral diaphysis. There is a linear tract of signal extending from the lateral skin surface at this level towards the cortical defect. There is no current nearby focal fluid collection or otherwise identified focal fluid collection within the included [id number]. There is low-level edema in portions of the vastus intermedialis muscle. There is also very mild subcutaneous edema along the linear signal tract. The previously noted intramedullary abscess is essentially unchanged. There is persistent abnormal signal within the intramedullary cavity of the left femur with edema-like signal and enhancement extending to the level of the subtrochanteric femur. The distal extent of abnormal marrow signal extends to the level of the distal femoral epiphysis, best demonstrated on coronal T1 sequence image 17. There is chronic appearing periosteal reaction near the level of the cortical defect. There are left inguinal lymph nodes which measure up to approximately 17 mm in short axis. IMPRESSION: 1. Resolution of the previously noted intramuscular fluid collection within the vastus intermedialis muscle. 2. Persistent low level edema in the vastus intermedialis muscle is notably improved since December 02, 2022 and potentially could reflect residual myositis. 3. Redemonstrated cortical defect of the left femoral diaphysis with redemonstrated and unchanged intramedullary abscess. 4. Redemonstrated abnormal marrow signal in the left femur extending from the level of the subtrochanteric femur to the distal femoral epiphysis, most likely relating to persistent osteomyelitis. Dictated by: Dictated on workstation # [id number]
== END ==
LOC: RAD 12:30
PROVIDERS: ATTEND Orthopaedic Surgery
DX: L02.416 Cutaneous abscess of left lower limb (principal); M89.8X5 Other specified disorders of bone, thigh
CPT/HCPCS: 73720